=== PATIENT | female | born 1995 | race Caucasian/White ===

== ENCOUNTER 2021-12-26 19:31 | Emergency (ER) | payer OTHER ==
--- NOTE | 2021-12-26 21:21 | ER ---
Nurse's Notes [facility] [place] Name: Sanya Kearney Age: 26 yrs Sex: Female : 1995 Arrival Date: 12/26/2021 Time: 19:38 Bed 11 Private MD: Diagnosis: Streptococcal pharyngitis Presentation: 12/26 19:43 Chief complaint: Painful cough, congestion, SOB, headache, sore throat, body aches, and hb fever x 2 days. TMAX 101.6. Coronavirus screen: Client presents with at least one sign or symptom that may indicate coronavirus-19. Standard/surgical mask placed on the client. Provider contacted for isolation considerations. Ebola Screen: No symptoms or risks identified at this time. Initial Sepsis Screen: Does the patient meet any 2 criteria? No. Patient's initial sepsis screen is negative. Does the patient have a suspected source of infection? No. Patient's initial sepsis screen is negative. Risk Assessment: Do you want to hurt yourself or someone else? Patient reports no desire to harm self or others. Onset of symptoms was December 25, 2021. 19:43 Method Of Arrival: Ambulatory hb 19:43 Acuity: GILL 4 hb Historical: - Allergies: 19:46 No Known Allergies; hb - Home Meds: 19:46 None [Active]; hb - PMHx: 19:46 None; hb - PSHx: 19:46 None; hb - Immunization history:: Client reports having NOT received the Covid vaccine. - Social history:: Smoking status: Patient denies any tobacco usage or history of. - Family history:: not pertinent. - Hospitalizations: : No recent hospitalization is reported. Screenin:00 Abuse screen: Denies threats or abuse. Denies injuries from another. Nutritional hb screening: No deficits noted. Tuberculosis screening: No symptoms or risk factors identified. Fall Risk None identified. Assessment: 19:45 General: Appears in no apparent distress. Behavior is calm, cooperative. Pain: Pain hb currently is 6 out of 10 on a pain scale. Neuro: Level of Consciousness is awake, alert, obeys commands, Oriented to person, place, time, situation. Cardiovascular: Patient's skin is warm and dry. Respiratory: Respiratory effort is even, unlabored, Respiratory pattern is regular, symmetrical. GI: No signs and/or symptoms were reported involving the gastrointestinal system. : No signs and/or symptoms were reported regarding the genitourinary system. EENT: No signs and/or symptoms were reported regarding the EENT system. Derm: Skin is pink, warm \\T\\ dry. Musculoskeletal: No signs and/or symptoms reported regarding the musculoskeletal system. 21:00 Reassessment: Patient appears in no apparent distress at this time. Patient and/or hb family updated on plan of care and expected duration. Pain level reassessed. Patient is alert, oriented x 3, equal unlabored respirations, skin warm/dry/pink. Vital Signs: 19:43 BP 142 / 72; Pulse 90; Resp 18; Temp 98.6; Pulse Ox 97% ; Weight 117.93 kg; Height 5 hb ft. 8 in. (172.72 cm); Pain 6/10; 19:43 Body Mass Index 39.53 (117.93 kg, 172.72 cm) hb ED Course: 19:38 Patient arrived in ED. ja2 19:46 Triage completed. hb 19:46 Arm band placed on. hb 19:58 Shen Shannon MD is Attending Physician. rn 20:27 Strep Sent. 5 20:27 Flu Sent. [facility] 20:27 SARS-COV-2 RT PCR (Document "Date of Onset" if Symptomatic) Sent. [facility] 20:27 COVID swab sent to lab. Flu and/or RSV swab sent to lab. Strep swab sent to lab. [facility] 21:34 Patient has correct armband on for positive identification. hb 21:34 No provider procedures requiring assistance completed. Patient did not have IV access hb during this emergency room visit. Administered Medications: 21:33 Drug: Augmentin (Amoxicillin-Clavulanate) 875 mg Route: PO; 21:33 Follow up: Response: Medication administered at discharge. Medication: 21:34 VIS not applicable for this client. Outcome: 21:21 Discharge ordered by . rn 21:34 Discharged to home ambulatory. 21:34 Condition: stable 21:34 Discharge instructions given to patient, Instructed on discharge instructions, follow up and referral plans. medication usage, Demonstrated understanding of instructions, follow-up care, medications, Prescriptions given X 1. 21:34 Patient left the ED. Signatures: Shen Shannon MD MD rn Baxter, Heather, RN RN hb Martinez, Maria [facility] Sariah Silva2 Corrections: (The following items were deleted from the chart) 19:47 19:43 Pulse 90bpm; Resp 18bpm; Pulse Ox 97%; Temp 98.6F; 117.93 kg; Height 5 ft. 8 in.; hb BMI: 39.5; Pain 6/10; hb 21:09 19:43 Acuity: GILL 3 hb hb
--- NOTE | 2021-12-26 21:21 | EDPHYS ---
Physician Documentation [facility] [place] Name: Sanya Kearney Age: 26 yrs Sex: Female : 1995 Arrival Date: 12/26/2021 Time: 19:38 Bed 11 Private MD: ED Physician Shen Shannon HPI: 12/26 20:28 This 26 yrs old Female presents to ER via Ambulatory with complaints of Cough, rn Congestion, Ear Pain, Chest Pain, Runny Nose. 20:28 The patient or guardian reports cough, flu symptoms, low-grade fever, myalgias, hoarse rn voice. 20:28 Onset: The symptoms/episode began/occurred 2 day(s) ago. Severity of symptoms: At their rn worst the symptoms were mild, in the emergency department the symptoms are unchanged. Modifying factors: The symptoms are alleviated by nothing, the symptoms are aggravated by nothing. Associated signs and symptoms: Pertinent positives: earache, fever, rhinorrhea, sore throat, Pertinent negatives: chest pain. The patient has not experienced similar symptoms in the past. The patient has not recently seen a physician. Daughter now sick with similar symptoms as well. No sob. . Historical: - Allergies: 19:46 No Known Allergies; hb - Home Meds: 19:46 None [Active]; hb - PMHx: 19:46 None; hb - PSHx: 19:46 None; hb - Immunization history:: Client reports having NOT received the Covid vaccine. - Social history:: Smoking status: Patient denies any tobacco usage or history of. - Family history:: not pertinent. - Hospitalizations: : No recent hospitalization is reported. 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 Exam: 20:28 Constitutional: This is a well developed, well nourished patient who is awake, alert, rn and in no acute distress. Head/Face: Normocephalic, atraumatic. Eyes: Periorbital areas with no swelling, redness, or edema. Cardiovascular: Regular rate and rhythm. No pulse deficits. Respiratory: No increased work of breathing, no retractions or nasal flaring. Skin: Warm, dry with normal turgor. Normal color with no rashes, no lesions, and no evidence of cellulitis. MS/ Extremity: Pulses equal, no cyanosis. Neuro: Awake and alert, GCS 15 Vital Signs: 19:43 BP 142 / 72; Pulse 90; Resp 18; Temp 98.6; Pulse Ox 97% ; Weight 117.93 kg; Height 5 hb ft. 8 in. (172.72 cm); Pain 6/10; 19:43 Body Mass Index 39.53 (117.93 kg, 172.72 cm) hb MDM: 19:58 Patient medically screened. rn 21:19 Differential Diagnosis: Bronchitis Influenza Upper Respiratory Infection Viral rn Syndrome. Data reviewed: vital signs, nurses notes, lab test result(s), and as a result, I will discharge patient. Counseling: I had a detailed discussion with the patient and/or guardian regarding: the historical points, exam findings, and any diagnostic results supporting the discharge/admit diagnosis, lab results, the need for outpatient follow up, to return to the emergency department if symptoms worsen or persist or if there are any questions or concerns that arise at home. Special discussion: I discussed with the patient/guardian in detail that at this point there is no indication for admission to the hospital. It is understood, however, that if the symptoms persist or worsen the patient needs to return immediately for re-evaluation. 12/26 20:11 Order name: SARS-COV-2 RT PCR (Document "Date of Onset" if Symptomatic); Complete Time: rn 21:18 12/26 20:11 Order name: Flu; Complete Time: 21:18 rn 12/26 20:11 Order name: Strep; Complete Time: 21:18 rn Administered Medications: 21:33 Drug: Augmentin (Amoxicillin-Clavulanate) 875 mg Route: PO; hb 21:33 Follow up: Response: Medication administered at discharge. hb Disposition Summary: 12/26/21 21:21 Discharge Ordered Location: Home rn Problem: new rn Symptoms: have improved rn Condition: Stable rn Diagnosis - Streptococcal pharyngitis rn Followup: rn - With: Private Physician - When: As needed - Reason: Recheck today's complaints, Re-evaluation by your physician Discharge Instructions: - Discharge Summary Sheet rn - Pharyngitis rn - Strep Throat, Adult rn Forms: - Medication Reconciliation Form rn - Thank You Letter rn - Antibiotic rn resource nurse - Prescription Opioid Use rn Prescriptions: - Augmentin 875-125 mg Oral Tablet - take 1 tablet by ORAL route every 12 hours for 10 days; 20 tablet; Refills: 0, rn Product Selection Permitted Signatures: Dispatcher [employer] Shen Sanon MD MD rn Paige Venegas RN RN
[2021-12-26] MEDS ORDERED: AMOX/K CLAV 875 MG TAB ONE (21:42)
[2021-12-27 01:00] VITALS: BP 142/72; TEMP 98.6; O2SAT 97
== END 2021-12-26 21:34 | disposition home or self-care (01) ==
LOC: ER 19:31 → EDBD 19:31 → ER 21:34
DX: J02.0 Streptococcal pharyngitis (principal); Z20.822 Contact with and (suspected) exposure to COVID-19
CPT/HCPCS: 87081; 87804 ×2; 99283; U0003

== ENCOUNTER 2023-03-15 17:41 | Emergency (ER) | payer OTHER ==
--- OUTSIDE RECORDS SUMMARY | 2023-03-15 17:45 | XMS REPORT | Continuity of Care Document ---
:1995 Author Organization [facility] t Address [address] [place] [address] Care Team Providers Name Role Phone Arlene Perez Primary Care Physician Arlene Perez Attending Clinician [phone] Doctor Unassigned, Seba Dalkai Attending Clinician Unavailable Griselda Feliciano Attending Clinician Unavailable GRISELDA DUARTE Attending Clinician Unavailable ARLENE STARKS Attending Clinician Unavailable Woo Ellis MD Attending Clinician WOO ELLIS Attending Clinician Unavailable Roberto Saucedo DO Attending Clinician Jose Manuel Esteban DO Attending Clinician Soraya Miranda RN Attending Clinician Unavailable Ultrasound, [facility] Attending Clinician Unavailable Geronimo Cho MD Attending Clinician GERONIMO CHO Attending Clinician Unavailable Terese Quiroz Attending Clinician Unavailable LISA ESPINOZA Attending Clinician Unavailable Lab, [facility] Attending Clinician Unavailable Brandon Gayle MD Attending Clinician BRANDON GAYLE Attending Clinician Unavailable Lisa Newsome Attending Clinician Lab, [facility] Attending Clinician Unavailable Amna Read MD, Rodgers Attending Clinician [phone] JUANCARLOS MERIDA Attending Clinician Unavailable 1, [facility] Room Attending Clinician Unavailable Woo Ellis MD Admitting Clinician WOO ELLIS Admitting Clinician Unavailable Payers Payer Name Policy Type Policy Number Effective Date Expiration Date S ource Problems Condition Condition Condition Status Onset Resolution Last Treating Co mments Source Name Details Category Date Date Treatment Clinician Date BMI BMI Disease Active Univers 40.0-44.9, 40.0-44.9, 8-03 it y of adult adult 00:00: [place] [address] Medical Branch Screen for Screen for Disease Active U [employer] STD STD 7-13 ity of ([place] dical d disease) d disease) Br anch Dysuria Dysuria Disease Active Univers 6-21 ity of 00:00: [place] [address] Medical [place] Class 3 Class 3 Disease Active 2020-04 Univers severe severe 1-12 ity of obesity obesity 00:00: [place] due to due to 00 Medical excess excess Branch calories calories with body with body mass index mass index (BMI) of (BMI) of 40.0 to 40.0 to 44.9 in 44.9 in adult, adult, unspecifie unspecifie d whether d whether serious serious comorbidit comorbidit y present y present Well woman Well woman Disease Active U nivers exam exam 8-29 ity of 00:00: [place] [address] Medical Branch Obesity Obesity Disease Active Univers (BMI (BMI 7-12 ity of 30-39.9) 30-39.9) 00:00: [place] [address] Medical Branch History of History of Disease Active 2016-04 U nivers depression depression 1-27 it y of 00:00: [address] Allergies, Adverse Reactions, Alerts Allergy Allergy Status Severity Reaction(s) Onset Inactive Treating Comm ents Source Name Type Date Date Clinician NO KNOWN Drug Active Univers ALLERGIE Class ity of [facility] Social History Social Habit Start Date Stop Date Quantity Comments Source Sexual orientation [facility] Exposure to 2021-11-23 2021-12-03 Not sure [facility] SARS-CoV-2 (event) 00:00:00 14:18:00 [facility] Alcohol intake 2021-02-27 2021-02-27 Current University of 00:00:00 00:00:00 non-drinker of [facility] alcohol [place] (finding) History of Social 2018-10-26 2018-10-26 Univers ity of function 00:00:00 00:00:00 [facility] Tobacco use and 2017-03-14 2017-03-14 Smokeless Universit y of exposure 00:00:00 00:00:00 tobacco non-user [facility] Sex Assigned At [birth year] Universit y of 00:00:00 00:00:00 [facility] Smoking Status Start Date Stop Date Source Never smoked tobacco [facility] Medications Ordered Filled Start Stop Current Ordering Indication Dosage Frequency Signature Comments Components Source Medication Medication Date Date Medication? Clinician (SIG) Name Name jack Yes [id number] 1{tbl} Take 1 Univers ne 0.35 mg 8-18 tablet by ity of tablet 00:00: mouth in [place] the Medical morning. Branch jack Yes [id number] 1{tbl} Take 1 Univers ne 0.35 mg 8-18 tablet by ity of tablet 00:00: mouth in [place] the Medical morning. Branch jack Yes [id number] 1{tbl} Take 1 Univers ne 0.35 mg 8-18 tablet by ity of tablet 00:00: mouth in [place] the Medical morning. Branch jack Yes [id number] 1{tbl} Take 1 Univers ne 0.35 mg 8-18 tablet by ity of tablet 00:00: mouth in [place] [address] the Medical morning. Branch jack Yes [id number] 1{tbl} Take 1 Univers ne 0.35 mg 8-18 tablet by ity of tablet 00:00: mouth in [place] 00 the Medical morning. Branch 2021- No [facility] 6[facility]18 06-18 mouth. ity of calc,iron,f 08:26: 00:00 [place] olic 33 :00 Medical ( Branch VITAMIN ORAL) 2021- No Take by Unive rs vit 6-18 18 mouth. ity of calc,iron,f 08:26: 00:00 [place] ol 33 :00 Medical ( Branch VITAMIN ORAL) 2021- No Take by [facility] vit 6-18 18 mouth. ity of calc,iron,f 08:26: 00:00 [place] ol 33 :00 Medical ( Branch VITAMIN ORAL) Yes [id number] 1{tbl} Take 1 U nivers vitamin 6-18 tablet by ity of w/FA tablet 00:00: mouth [place] 00 daily. Medical Branch docusate Yes [id number] 200mg Take 2 Un celestina 100 mg 6-18 capsules ity of capsule 00:00: by mouth [place] 00 once daily Medical as needed Branch for Constipati on. ferrous Yes [id number] 325mg Take 1 Uni vers sulfate 325 6-18 tablet by ity of mg (65 mg 00:00: mouth 2 [place] iron) 00 (two) Medical tablet times Branch daily. ibuprofen Yes [id number] 600mg Take 1 U nivers 600 mg 6-18 tablet by ity of tablet 00:00: mouth [place] 00 every 6 Medical (six) Branch hours as needed (Pain). Take with food or milk. Yes [id number] 1{tbl} Take 1 U nivers vitamin 6-18 tablet by ity of w/FA tablet 00:00: mouth [place] 00 daily. Medical Branch docusate Yes [id number] 200mg Take 2 Un celestina 100 mg 6-18 capsules ity of capsule 00:00: by mouth [place] 00 once daily Medical as needed Branch for Constipati on. ferrous Yes [id number] 325mg Take 1 Uni vers sulfate 325 6-18 tablet by ity of mg (65 mg 00:00: mouth 2 [place] iron) 00 (two) Medical tablet times Branch daily. ibuprofen 2021-0 Yes [id number] 600mg Take 1 U nivers 600 mg 6-18 tablet by ity of tablet 00:00: mouth [place] 00 every 6 Medical (six) Branch hours as needed (Pain). Take with food or milk. 2021-0 Yes [id number] 1{tbl} Take 1 U nivers vitamin 6-18 tablet by ity of w/FA tablet 00:00: mouth [place] 00 daily. Medical Branch docusate 0 Yes [id number] 200mg Take 2 Un celestina 100 mg 6-18 capsules ity of capsule 00:00: by mouth [place] 00 once daily Medical as needed Branch for Constipati on. ferrous 2021-0 Yes [id number] 325mg Take 1 Uni vers sulfate 325 6-18 tablet by ity of mg (65 mg 00:00: mouth 2 [place] iron) 00 (two) Medical tablet times Branch daily. ibuprofen 2021-0 Yes [id number] 600mg Take 1 U nivers 600 mg 6-18 tablet by ity of tablet 00:00: mouth [place] 00 every 6 Medical (six) Branch hours as needed (Pain). Take with food or milk. 2021-0 Yes [id number] 1{tbl} Take 1 U nivers vitamin 6-18 tablet by ity of w/FA tablet 00:00: mouth [place] 00 daily. Medical Branch docusate 2021-0 Yes [id number] 200mg Take 2 Un celestina 100 mg 6-18 capsules ity of capsule 00:00: by mouth [place] 00 once daily Medical as needed Branch for Constipati on. ferrous 2021-0 Yes [id number] 325mg Take 1 Uni vers sulfate 325 6-18 tablet by ity of mg (65 mg 00:00: mouth 2 [place] iron) 00 (two) Medical tablet times Branch daily. ibuprofen 2021-0 Yes [id number] 600mg Take 1 U nivers 600 mg 6-18 tablet by ity of tablet 00:00: mouth [place] 00 every 6 Medical (six) Branch hours as needed (Pain). Take with food or milk. 2021-0 Yes [id number] 1{tbl} Take 1 U nivers vitamin 6-18 tablet by ity of w/FA tablet 00:00: mouth [place] 00 daily. Medical Branch docusate 0 Yes [id number] 200mg Take 2 Un celestina 100 mg 6-18 capsules ity of capsule 00:00: by mouth [place] 00 once daily Medical as needed Branch for Constipati on. ferrous 2021-0 Yes [id number] 325mg Take 1 Uni vers sulfate 325 6-18 tablet by ity of mg (65 mg 00:00: mouth 2 [place] iron) 00 (two) Medical tablet times Branch daily. ibuprofen 2021-0 Yes [id number] 600mg Take 1 U nivers 600 mg 6-18 tablet by ity of tablet 00:00: mouth [place] 00 every 6 Medical (six) Branch hours as needed (Pain). Take with food or milk. 0 Yes [id number] 1{tbl} Take 1 U nivers vitamin 6-18 tablet by ity of w/FA tablet 00:00: mouth [place] 00 daily. Medical Branch docusate Yes [id number] 200mg Take 2 Un celestina 100 mg 6-18 capsules ity of capsule 00:00: by mouth [place] 00 once daily Medical as needed Branch for Constipati on. ferrous 0 Yes [id number] 325mg Take 1 Uni vers sulfate 325 6-18 tablet by ity of mg (65 mg 00:00: mouth 2 [place] iron) 00 (two) Medical tablet times Branch daily. ibuprofen 2021-0 Yes [id number] 600mg Take 1 U nivers 600 mg 6-18 tablet by ity of tablet 00:00: mouth [place] 00 every 6 Medical (six) Branch hours as needed (Pain). Take with food or milk. 2021-0 Yes [id number] 1{tbl} Take 1 U nivers vitamin 6-18 tablet by ity of w/FA tablet 00:00: mouth [place] 00 daily. Medical Branch docusate 0 Yes [id number] 200mg Take 2 Un celestina 100 mg 6-18 capsules ity of capsule 00:00: by mouth [place] 00 once daily Medical as needed Branch for Constipati on. ferrous 2021-0 Yes [id number] 325mg Take 1 Uni vers sulfate 325 6-18 tablet by ity of mg (65 mg 00:00: mouth 2 [place] iron) 00 (two) Medical tablet times Branch daily. ibuprofen 2021-0 Yes [id number] 600mg Take 1 U nivers 600 mg 6-18 tablet by ity of tablet 00:00: mouth [place] 00 every 6 Medical (six) Branch hours as needed (Pain). Take with food or milk. proMETHazin 2020-04- No [id number] 25mg Take 1 Univers e 25 mg 05-0918 tablet by ity of tablet 00:00: 00:00 mouth [place] 00 :00 every 4 Medical (four) Branch hours as needed for Nausea and Vomiting (N/V). PNV 67-iron 2020-04- No [id number] 1{capsu Take 1 Univers ps-folate 04-2918 le} capsule by ity of no.1-dha 00:00: 00:00 mouth [place] (VITAFOL 00 :00 daily. Medical ULTRA) 29 Branch mg iron- 1 mg-200 mg Cap PNV 67-iron 2020-04- No [id number] 1{capsu Take 1 Univers ps-folate 04-29 le} capsule by ity of no.1-dha 00:00: 00:00 mouth [place] (VITAFOL 00 :00 daily. Medical ULTRA) 29 Branch mg iron- 1 mg-200 mg Cap PNV 67-iron 2020-04- No [id number] 1{capsu Take 1 Univers ps-folate 04-29 le} capsule by ity of no.1-dha 00:00: 00:00 mouth [place] (VITAFOL 00 :00 daily. Medical ULTRA) 29 Branch mg iron- 1 mg-200 mg Cap Immunizations Ordered Filled Date Status Comments Source Immunization Name Immunization Name Rho (d) Immune 2021-10-02 Completed University of Globulin 00:00:00 [facility] Rho (d) Immune 2021-10-02 Completed University of Globulin 00:00:00 [facility] Rho (d) Immune 2021-10-02 Completed University of Globulin 00:00:00 [facility] TDAP 2021-07-22 Completed University of 00:00:00 [facility] Rho (d) Immune 2021-07-22 Completed University of Globulin 00:00:00 [facility] TDAP 2021-07-22 Completed University of 00:00:00 [facility] Rho (d) Immune 2021-07-22 Completed University of Globulin 00:00:00 [facility] TDAP 2021-07-22 Completed University of 00:00:00 [facility] Rho (d) Immune 2021-07-22 Completed University of Globulin 00:00:00 [facility] HPV9 2017-12-05 Completed University of 00:00:00 [facility] HPV9 2017-12-05 Completed University of 00:00:00 [facility] HPV9 2017-12-05 Completed University of 00:00:00 [facility] HPV9 2017-10-29 Completed University of 00:00:00 [facility] HPV9 2017-10-29 Completed University of 00:00:00 [facility] HPV9 2017-10-29 Completed University of 00:00:00 [facility] Rho (d) Immune 2017-10-28 Completed University of Globulin 00:00:00 [facility] Rho (d) Immune 2017-10-28 Completed University of Globulin 00:00:00 [facility] Rho (d) Immune 2017-10-28 Completed University of Globulin 00:00:00 [facility] TDAP 2017-08-16 Completed University of 00:00:00 [facility] Rho (d) Immune 2017-08-16 Completed University of Globulin 00:00:00 [facility] TDAP 2017-08-16 Completed University of 00:00:00 [facility] Rho (d) Immune 2017-08-16 Completed University of Globulin 00:00:00 [facility] TDAP 2017-08-16 Completed University of 00:00:00 [facility] Rho (d) Immune 2017-08-16 Completed University of Globulin 00:00:00 [facility] Influenza Virus 2017-02-16 Completed Universit y of Vaccine - Whole 00:00:00 [facility] Influenza Virus 2017-02-16 Completed Universit y of Vaccine - Whole 00:00:00 [facility] Influenza Virus 2017-02-16 Completed Universit y of Vaccine - Whole 00:00:00 [facility] Influenza Virus Unknown Completed Universit y of Vaccine - Whole [facility] TDAP Unknown Completed University [facility] Rho (d) Immune Unknown Completed University of Globulin [facility] Rho (d) Immune Unknown Completed University of Globulin [facility] HPV9 Unknown Completed University [facility] HPV9 Unknown Completed University [facility] TDAP Unknown Completed University of [facility] Rho (d) Immune Unknown Completed University of Globulin [facility] Rho (d) Immune Unknown Completed [facility] Influenza Virus Unknown Completed Universit y of Vaccine - Whole [facility] TDAP Unknown Completed [facility] Rho (d) Immune Unknown Completed [facility] Rho (d) Immune Unknown Completed [facility] HPV9 Unknown Completed [facility] HPV9 Unknown Completed [facility] TDAP Unknown Completed [facility] Rho (d) Immune Unknown Completed [facility] Rho (d) Immune Unknown Completed [facility] Influenza Virus Unknown Completed Universit y of Vaccine - Whole [facility] TDAP Unknown Completed [facility] Rho (d) Immune Unknown Completed [facility] Rho (d) Immune Unknown Completed [facility] HPV9 Unknown Completed [facility] HPV9 Unknown Completed [facility] TDAP Unknown Completed [facility] Rho (d) Immune Unknown Completed [facility] Rho (d) Immune Unknown Completed [facility] Influenza Virus Unknown Completed Universit y of Vaccine - Whole [facility] TDAP Unknown Completed [facility] Rho (d) Immune Unknown Completed [facility] Rho (d) Immune Unknown Completed [facility] HPV9 Unknown Completed [facility] HPV9 Unknown Completed [facility] TDAP Unknown Completed [facility] Rho (d) Immune Unknown Completed [facility] Rho (d) Immune Unknown Completed [facility] Influenza Virus Unknown Completed Universit y of Vaccine Whole [facility] TDAP Unknown Completed [facility] Rho (d) Immune Unknown Completed [facility] Rho (d) Immune Unknown Completed [facility] HPV9 Unknown Completed [facility] HPV9 Unknown Completed [facility] TDAP Unknown Completed [facility] Rho (d) Immune Unknown Completed [facility] Influenza Virus Unknown Completed Universit y of Vaccine - Whole [facility] TDAP Unknown Completed [facility] Rho (d) Immune Unknown Completed [facility] Rho (d) Immune Unknown Completed [facility] HPV9 Unknown Completed [facility] HPV9 Unknown Completed [facility] TDAP Unknown Completed [facility] Rho (d) Immune Unknown Completed [facility] Influenza Virus Unknown Completed Universit y of Vaccine - Whole [facility] TDAP Unknown Completed [facility] Rho (d) Immune Unknown Completed [facility] Rho (d) Immune Unknown Completed [facility] HPV9 Unknown Completed [facility] HPV9 Unknown Completed [facility] TDAP Unknown Completed [facility] Rho (d) Immune Unknown Completed [facility] Influenza Virus Unknown Completed Universit y of Vaccine - Whole [facility] TDAP Unknown Completed [facility] Rho (d) Immune Unknown Completed [facility] Rho (d) Immune Unknown Completed [facility] HPV9 Unknown Completed [facility] HPV9 Unknown Completed [facility] TDAP Unknown Completed [facility] Rho (d) Immune Unknown Completed [facility] Influenza Virus Unknown Completed Universit y of Vaccine - Whole [facility] TDAP Unknown Completed [facility] Rho (d) Immune Unknown Completed [facility] Rho (d) Immune Unknown Completed [facility] HPV9 Unknown Completed [facility] HPV9 Unknown Completed [facility] TDAP Unknown Completed [facility] Rho (d) Immune Unknown Completed [facility] Influenza Virus Unknown Completed Universit y of Vaccine - Whole [facility] TDAP Unknown Completed [facility] Rho (d) Immune Unknown Completed [facility] Rho (d) Immune Unknown Completed [facility] HPV9 Unknown Completed [facility] HPV9 Unknown Completed [facility] Influenza Virus Unknown Completed Universit y of Vaccine - Whole [facility] TDAP Unknown Completed [facility] Rho (d) Immune Unknown Completed [facility] Rho (d) Immune Unknown Completed [facility] HPV9 Unknown Completed [facility] HPV9 Unknown Completed [facility] Influenza Virus Unknown Completed Universit y of Vaccine - Whole [facility] TDAP Unknown Completed [facility] Rho (d) Immune Unknown Completed [facility] Rho (d) Immune Unknown Completed [facility] HPV9 Unknown Completed [facility] HPV9 Unknown Completed [facility] Influenza Virus Unknown Completed Universit y of Vaccine - Whole [facility] TDAP Unknown Completed [facility] Rho (d) Immune Unknown Completed [facility] Rho (d) Immune Unknown Completed [facility] HPV9 Unknown Completed [facility] HPV9 Unknown Completed [facility] Influenza Virus Unknown Completed Universit y of Vaccine - Whole [facility] TDAP Unknown Completed [facility] Rho (d) Immune Unknown Completed [facility] Rho (d) Immune Unknown Completed [facility] HPV9 Unknown Completed [facility] HPV9 Unknown Completed [facility] Influenza Virus Unknown Completed Universit y of Vaccine - Whole [facility] TDAP Unknown Completed [facility] Rho (d) Immune Unknown Completed [facility] Rho (d) Immune Unknown Completed [facility] HPV9 Unknown Completed [facility] HPV9 Unknown Completed [facility] Vital Signs Vital Name Observation Time Observation Value Comments Source Systolic blood 2021-12-03 19:19:00 129 mm[Hg] Univer [facility] Diastolic blood 2021-12-03 19:19:00 68 mm[Hg] [facility] Heart rate 2021-12-03 19:19:00 76 /min [facility] Body temperature 2021-12-03 19:19:00 36.89 Tiffanie [facility] Respiratory rate 2021-12-03 19:19:00 18 /min [facility] Body weight 2021-12-03 19:19:00 120.884 kg [facility] BMI 2021-12-03 19:19:00 40.52 kg/m2 [facility] Procedures Procedure Date / Time Performed Performing Clinician Sourmati e POCT TEST 2021-12-03 19:22:00 Griselda Duarte [facility] Encounters Start End Encounter Admission Attending Care Care Encounter Source Date/Time Date/Time Type Type Clinicians Facility Department ID 2022-06-29 2022-06-29 Telephone [facility] [id number] [facility] 00:00:00 00:00:00 Arlene Seo PRIOR AUTHORIZATION NURSE [id number] ity [facility] [id number] Ravi as MATERNAL [id number] [facility] ical & CHILD [address] [place] [address] 2022-03-08 2022-03-08 Outpatient R [facility] [id number] Univers 14:00:00 14:00:00 ity of [facility] 2022-01-11 2022-01-11 Refill Eusebio [facility] [id number] Univers 00:00:00 00:00:00 Arlene Seo PRIOR AUTHORIZATION NURSE [id number] ity of [facility] [id number] Ravi as MATERNAL [id number] [facility] ical & CHILD [address] [place] [address] 2022-01-11 2022-01-11 Patient Doctor PAIGE [id number] Univers 00:00:00 00:00:00 Secure Msg Unassigned, KEEGAN [id number] ity [facility] [id number] Ravi as [phone] [address] 2021-12-25 2021-12-25 [facility] [id number] Univers 00:00:00 00:00:00 Secure Msg Griselda Richey PRIOR AUTHORIZATION NURSE [id number] ity of [facility] [id number] Ravi as MATERNAL [id number] [facility] & CHILD [address] [place] [address] 2021-12-03 2021-12-03 Outpatient R FELICIA [facility] [id number] Univers 14:30:00 14:32:18 ROSHUNDA ity o f [facility] 2021-12-03 2021-12-03 [facility] [id number] Univers 14:30:00 14:32:18 Visit Griselda Richey PRIOR AUTHORIZATION NURSE [id number] ity of [facility] [id number] Ravi as MATERNAL [id number] [facility] [facility] & CHILD [address] [place] [address] 2021-12-03 2021-12-03 Outpatient R FELICIA [facility] [id number] Univers 14:30:00 14:30:00 GRISELDA dejesusy o rae [facility] 2021-11-18 2021-11-18 [facility] [id number] Univers 09:45:00 10:31:04 GRISELDA dejesusy o rae [facility] 2021-11-18 2021-11-18 [facility] 1.2.840.114 [id number] Univers 09:45:00 10:31:04 Visit Josiewilber R PRIOR AUTHORIZATION NURSE 350.1.13.10 ity of REGIONAL 4.2.7.2.686 Ravi as MATERNAL [phone] Med ical & CHILD [address] [place] [address] 2021-11-18 2021-11-18 [facility] [id number] Univers 09:45:00 09:45:00 GRISELDA clemons o rae [facility] 2021-11-10 2021-11-10 Patient Doctor [facility] 1.2.840.114 [id number] Univers 00:00:00 00:00:00 Secure Msg Unassigned, PRIOR AUTHORIZATION NURSE 350.1.13.10 ity of [place] REGIONAL 4.2.7.2.686 Ravi as MATERNAL [phone] [facility] & CHILD [address] [place] [address] 2021-10-28 2021-10-28 Outpatient [facility] [id number] Univers 09:45:00 10:29:10 ARLENE ity o [facility] 2021-10-28 2021-10-28 Routine [facility] 1.2.649.511 [id number] Univers 09:45:00 10:29:10 Arlene C PRIOR AUTHORIZATION NURSE 350.1.13.10 ity of Visit REGIONAL 4.2.7.2.686 Ravi as MATERNAL [phone] [facility] & CHILD [address] [place] [address] 2021-10-07 2021-10-07 [facility] 1.2.277.442 [id number] Univers 00:00:00 00:00:00 Rosasianda R PRIOR AUTHORIZATION NURSE 350.1.13.10 ity of REGIONAL 4.2.7.2.686 Ravi as MATERNAL [id number] [facility] [address] [place] [address] 2021-10-07 2021-10-07 Patient Doctor [facility] 1.2.840.114 [id number] Univers 00:00:00 00:00:00 Secure Msg Unassigned, PRIOR AUTHORIZATION NURSE 350.1.13.10 ity of [place] [facility] 4.2.7.2.686 Ravi as MATERNAL [phone] [facility] & CHILD [address] [place] [address] 2021-10-06 2021-10-06 Routine [facility] 1.2.840.114 [id number] Univers 15:30:00 15:30:00 Griselda R PRIOR AUTHORIZATION NURSE 350.1.13.10 ity of Visit [facility] 4.2.7.2.686 Ravi as MATERNAL [id number] [facility] CHILD [address] [place] [address] 2021-10-06 2021-10-06 Outpatient [facility] [id number] Univers 15:30:00 13:34:00 ROSASIANDA ity o f [facility] 2021-10-06 2021-10-06 Telephone [facility] 1.2.828.142 [id number] Univers 00:00:00 00:00:00 Rossonja R PRIOR AUTHORIZATION NURSE 350.1.13.10 ity of [place] [address].2.7.2.686 Ravi as MATERNAL [id number] [address] 2021-10-01 2021-10-03 Hospital PAIGE Ellis 1.2.298.367 [id number] Univers 20:26:00 13:00:00 Encounter Woo ALLISON 350.1.13.10 ity of [facility] 4.7.2.686 Ravi as [phone] [address] 2021-10-01 2021-10-03 Inpatient P DMITRY [facility] VICTOR M [id number] Univers 20:26:00 13:00:00 WOO clemons [facility] 2021-10-02 2021-10-02 Anesthesia PAIGE Saucedo 1.2.840.114 [id number] Univers 20:01:15 20:01:15 Event Roberto KEEGAN 350.1.13.10 it y of HOSPITAL 4.2.7.2.686 Ravi as [phone] [facility] [address] 2021-10-01 2021-10-02 Anesthesia Roberto Saucedo 1.2.840.11 4 [id number] Univers 23:15:00 06:53:00 Event Jose Manuel EstebanY 350.1.13.10 ity of HOSPITAL 4.2.7.2.686 Ravi as [id number] [facility] [address] 2021-09-28 2021-09-28 Outpatient R FELICIA [facility] [id number] Univers 15:15:00 15:15:00 GRISELDA clemons o [facility] 2021-09-21 2021-09-21 Outpatient Kaiden DUARTE [facility] [id number] Univers 16:45:00 17:19:44 ROSWILBER roy [facility] 2021-09-21 2021-09-21 [facility] 1.2.840.114 [id number] Univers 16:45:00 17:00:00 Rosobia R PRIOR AUTHORIZATION NURSE 350.1.13.10 ity of Visit REGIONAL 4.2.7.2.686 Ravi as MATERNAL [phone] [facility] ical & CHILD [address] [place] [address] 2021-09-21 2021-09-21 Outpatient Kaiden DUARTE [facility] [id number] Univers 16:45:00 16:45:00 GRISELDA roy [facility] 2021-09-15 2021-09-15 Outpatient Kaiden DUARTE [facility] [id number] Univers 15:45:00 15:45:00 GRISELDA clemons o [facility] 2021-09-15 2021-09-15 Orders Doctor PAIGE 1.2.840.114 [id number] Univers 00:00:00 00:00:00 Only Unassigned, KEEGAN 350.1.13.10 ity of [place] HOSPITAL 4.2.7.2.686 Ravi as [phone] [facility] [address] 2021-09-10 2021-09-10 Patient Felicia TXDEBBIE 1.2.840.114 [id number] Univers 00:00:00 00:00:00 Secure Msg Josiehunda R PRIOR AUTHORIZATION NURSE 350.1.13.10 ity of REGIONAL 4.2.7.2.686 Ravi as MATERNAL [phone] [facility] ical & CHILD [address] [place] [address] 2021-09-07 2021-09-07 Patient Felicia TXDEBBIE 1.2.840.114 [id number] Univers 00:00:00 00:00:00 Secure Msg Josiehunda R PRIOR AUTHORIZATION NURSE 350.1.13.10 ity of REGIONAL 4.2.7.2.686 Ravi as MATERNAL [id number] [facility] & CHILD [address] [place] [address] 2021-09-07 2021-09-07 Orders Doctor PAIGE 1.2.840.114 [id number] Univers 00:00:00 00:00:00 Only Unassigned, KEEGAN 350.1.13.10 ity of [place] [facility] 4.2.7.2.686 Ravi as [phone] [address] 2021-09-04 2021-09-04 Patient Ruben [facility] 1.2.840.114 [id number] Univers 00:00:00 00:00:00 Secure Soraya Gu PRIOR AUTHORIZATION NURSE 350.1.13.10 ity of REGIONAL 4.2.7.2.686 Ravi as MATERNAL [id number] [facility] & CHILD [address] [place] [address] 2021-08-31 2021-08-31 Outpatient R FELICIA [facility] [id number] Univers 17:45:00 18:13:35 ROSHUNDA ity o f [facility] 2021-08-31 2021-08-31 [facility] 1.2.840.114 [id number] Univers 17:45:00 18:13:35 Roshunda R PRIOR AUTHORIZATION NURSE 350.1.13.10 ity of Visit REGIONAL 4.2.7.2.686 Ravi as MATERNAL [id number] [facility] & CHILD [address] [place] [address] 2021-08-31 2021-08-31 Outpatient R FELICIA [facility] [id number] Univers 13:45:00 13:45:00 ROSHUNDA ity o f [facility] 2021-08-31 2021-08-31 Outpatient R FELICIA [facility] [id number] Univers 11:00:00 11:00:00 ROSHUNDA ity o f [facility] 2021-08-19 2021-08-19 Patient Felicia [facility] 1.2.840.114 [id number] Univers 00:00:00 00:00:00 Secure Msg Roshunda R PRIOR AUTHORIZATION NURSE 350.1.13.10 ity of REGIONAL 4.2.7.2.686 Ravi as MATERNAL [id number] Med ical & CHILD [address] [place] [address] 2021-08-17 2021-08-17 Outpatient R FELICIA [facility] [id number] Univers 17:30:00 17:54:45 ROSASIANDA itfransico o f [facility] 2021-08-17 2021-08-17 [facility] 1.2.840.114 [id number] Univers 17:30:00 17:54:45 Roshunda R PRIOR AUTHORIZATION NURSE 350.1.13.10 ity of Visit REGIONAL 4.2.7.2.686 Ravi as MATERNAL [phone] Med ical & CHILD [address] [place] [address] 2021-08-17 2021-08-17 Patient Felicia [facility] 1.2.840.114 [id number] Univers 00:00:00 00:00:00 Secure Msg Josiehunda R PRIOR AUTHORIZATION NURSE 350.1.13.10 ity of REGIONAL 4.2.7.2.686 Ravi as MATERNAL [phone] Med ical & CHILD [address] [place] [address] 2021-08-17 2021-08-17 Case [facility] 1.2.840.114 [id number] Univers 00:00:00 00:00:00 Management Roshunda R PRIOR AUTHORIZATION NURSE 350.1.13.10 ity of REGIONAL 4.2.7.2.686 Ravi as MATERNAL [id number] Med ical & CHILD [address] [place] [address] 2021-08-06 2021-08-06 Outpatient R FELICIA [facility] [id number] Univers 08:00:00 08:00:00 ROSASIANDA ity o f [facility] 2021-08-03 2021-08-03 Outpatient Kaiden DUARTE [facility] [id number] Univers 17:30:00 17:39:22 ROSASIANDA ity o f [facility] 2021-08-03 2021-08-03 [facility] 1.2.840.114 [id number] Univers 17:30:00 17:39:22 Roshunda R PRIOR AUTHORIZATION NURSE 350.1.13.10 ity of Visit REGIONAL 4.2.7.2.686 Ravi as MATERNAL [id number] Med ical & CHILD [address] [place] [address] 2021-07-23 2021-07-23 Patient Felicia [facility] 1.2.840.114 [id number] Univers 00:00:00 00:00:00 Secure Msg Roshunda R PRIOR AUTHORIZATION NURSE 350.1.13.10 ity of REGIONAL 4.2.7.2.686 Ravi as MATERNAL [phone] Med ical & CHILD [address] [place] [address] 2021-07-22 2021-07-22 Outpatient Kaiden DUARTE [facility] [id number] Univers 07:45:00 08:43:32 ROSHUNDA ity o [facility] 2021-07-22 2021-07-22 Routine [facility] 1.2.840.114 [id number] Univers 07:45:00 08:43:32 Roshunda R PRIOR AUTHORIZATION NURSE 350.1.13.10 ity of Visit REGIONAL 4.2.7.2.686 Ravi as MATERNAL [id number] Med ical & CHILD [address] [place] [address] 2021-07-22 2021-07-22 Outpatient Kaiden DUARTE [facility] [id number] Univers 07:45:00 07:45:00 ROSHUNDA ity o f [facility] 2021-07-08 2021-07-08 Outpatient Kaiden DUARTE [facility] [id number] Univers 07:45:00 08:21:42 ROSHUNDA ity o f [facility] 2021-07-082021-07-08 Routine [facility] 1.2.840.114 [id number] Univers 07:45:00 08:21:42 Roshunda R PRIOR AUTHORIZATION NURSE 350.1.13.10 ity of Visit REGIONAL 4.2.7.2.686 Ravi as MATERNAL [id number] [facility] ical & CHILD [address] [place] [address] 2021-06-23 2021-06-23 Outpatient [facility] [id number] Univers 07:45:00 08:08:16 ROSHUNDA ity o f [facility] 2021-06-23 2021-06-23 Routine [facility] 1.2.840.114 [id number] Univers 07:45:00 08:08:16 Roshunda R PRIOR AUTHORIZATION NURSE 350.1.13.10 ity of Visit REGIONAL 4.2.7.2.686 Ravi as MATERNAL [id number] [facility] & CHILD [address] [place] [address] 2021-05-26 2021-05-26 Outpatient [facility]iden [facility] [id number] Univers 08:45:00 09:21:15 ROSHUNDA ity o f [facility] 2021-05-26 2021-05-26 [facility] 1.2.840.114 [id number] Univers 08:45:00 09:21:15 Roshunda R PRIOR AUTHORIZATION NURSE 350.1.13.10 ity of Visit REGIONAL 4.2.7.2.686 Ravi as MATERNAL [id number] [facility] & CHILD [address] [place] [address] 2021-05-26 2021-05-26 Out[facility] [id number] Univers 08:45:00 08:45:00 ROSHUNDA ity o f [facility] 2021-05-22 2021-05-22 Abstract Eusebio [facility] 1.2.840.114 [id number] Univers 00:00:00 00:00:00 Arlene C PRIOR AUTHORIZATION NURSE 350.1.13.10 ity of REGIONAL 4.2.7.2.686 Ravi as MATERNAL [id number] [facility] & CHILD [address] [place] [address] 2021-05-21 2021-05-21 Psychiatric Technician Ultrasound, Junior-Leo [facility] 1.2 .840.114 [id number] Univers 10:00:00 11:18:16 Visit Marquis Geronimo Goddard PRIOR AUTHORIZATION NURSE 350.1.13.10 ity of [facility] 4.2.7.2.686 Ravi as MATERNAL [id number] Med ical & CHILD [address] [facility] 2021-05-21 2021-05-21 Outpatient P [facility] [id number] Univers 10:00:00 10:00:00 ity [facility] 2021-05-21 2021-05-21 Outpatient P MARQUIS [facility] [id number] Univers 10:00:00 10:00:00 GERONIMO [facility] 2021-04-29 2021-04-29 [facility] 1.2.036.417 [id number] Univers 00:00:00 00:00:00 Rossonja R PRIOR AUTHORIZATION NURSE 350.1.13.10 ity of [facility] 4.2.7.2.686 Ravi as MATERNAL [id number] [facility] & CHILD [address] [place] [address] 2021-04-28 2021-04-28 Outpatient R FELICIA [facility] [id number] Univers 08:45:00 09:45:10 ROSHUNDA ity o f [facility] 2021-04-28 2021-04-28 Routine Felicia [facility] 1.2.840.114 [id number] Univers 08:45:00 09:45:10 Roshunda R PRIOR AUTHORIZATION NURSE 350.1.13.10 ity of Visit [facility] 4.2.7.2.686 Ravi as MATERNAL [id number] [facility] & CHILD [address] [place] [address] 2021-04-27 2021-04-27 Telephone Richie [facility] 1.2.840.114 [id number] Univers 00:00:00 00:00:00 Terese SPECIALTY 350.1.13.10 [place] [phone] [address] 2021-04-24 2021-04-24 [facility] [id number] Univers 10:45:00 10:45:00 LISA clemons [facility] 2021-04-17 2021-04-17 Psychiatric Technician Lab, Ang-Rmchp [facility] 1.2.840. 114 [id number] Univers 13:30:00 13:30:00 Visit Brandon Gayle PRIOR AUTHORIZATION NURSE 350.1.13.10 ity of [facility] 4.2.7.2.686 Ravi as MATERNAL [phone] [facility] ical & CHILD [address] [place] [address] 2021-04-17 2021-04-17 Outpatient P BRANDON GAYLE [facility] [id number] Univers 09:00:00 09:36:13 ity [facility] 2021-04-17 2021-04-17 Telemedici Terese Quiroz [facility] 1.2.8 40.114 [id number] Univers 09:00:00 09:36:13 ne Visit Brandon Gayle PRIOR AUTHORIZATION NURSE 350.1.13.10 ity of [facility] 4.2.7.2.686 Ravi as MATERNAL [phone] [facility] [address] [place] [address] 2021-04-17 2021-04-17 Outpatient P [facility] [id number] Univers 09:00:00 09:00:00 ity [facility] 2021-04-17 2021-04-17 Orders Doctor PAIGE 1.2.840.114 [id number] Univers 00:00:00 00:00:00 Only Unassigned, KEEGAN 350.1.13.10 ity of [place] [facility] 4.2.7.2.686 Ravi as [id number] [address] 2021-04-14 2021-04-14 Telephone Alexis [facility] 1.2.840.114 [id number] Univers 00:00:00 00:00:00 Lisa Rangel PRIOR AUTHORIZATION NURSE 350.1.13.10 it y of [facility] 4.2.7.2.686 Ravi as MATERNAL [phone] [facility] [address] [place] [address] 2021-04-02 2021-04-02 Patient Alexis [facility] 1.2.115.936 [id number] Univers 00:00:00 00:00:00 Secure Msg Lisa N PRIOR AUTHORIZATION NURSE 350.1.13.10 ity of REGIONAL 4.2.7.2.686 Ravi as MATERNAL [id number] Med ical & CHILD [address] [place] [address] 2021-04-02 2021-04-02 [facility] 1.2.840.114 [id number] Univers 00:00:00 00:00:00 Lisa N PRIOR AUTHORIZATION NURSE 350.1.13.10 it y of REGIONAL 4.2.7.2.686 Ravi as MATERNAL [id number] Med ical & CHILD [address] [place] [address] 2021-04-01 2021-04-01 [facility] 1.2.840. 114 [id number] Univers 11:00:00 11:04:08 Visit Amna Jacek Juancarlos PRIOR AUTHORIZATION NURSE 350.1. 13.10 ity of REGIONAL 4.2.7.2.686 Ravi as MATERNAL [phone] Med ical & CHILD [address] [place] [address] 2021-04-01 2021-04-01 Outpatient R AMNA [facility] [id number] Univers 11:00:00 11:00:00 CALLI it y of [place] Ruth [facility] 2021-04-01 2021-04-01 Psychiatric Technician 1, [facility] 1.2. 840.114 [id number] Univers 10:15:00 11:00:00 Visit Amna StephensezequielJuancarlos PRIOR AUTHORIZATION NURSE 350.1. 13.10 ity of REGIONAL 4.2.7.2.686 Ravi as MATERNAL [id number] Med ical & CHILD [address] [facility] 2021-03-31 2021-03-31 Patient [facility] 1.2.453.073 [id number] Univers 00:00:00 00:00:00 Secure Msg Lisa N PRIOR AUTHORIZATION NURSE 350.1.13.10 ity of [facility] 4.2.7.2.686 Ravi as MATERNAL [phone] Med ical & CHILD [address] [place] [address] 2021-03-27 2021-03-27 [facility] [id number] Univers 10:30:00 10:58:54 LISA olegfransico [facility] 2021-03-27 2021-03-27 Routine [facility] 1.2.456.676 [id number] Univers 10:25:21 10:58:54 Lisa Rangel PRIOR AUTHORIZATION NURSE 350.1.13.10 i ty of Visit REGIONAL 4.2.7.2.686 Ravi as MATERNAL [id number] Med ical & CHILD [address] [place] [address] 2021-03-27 2021-03-27 Outpatient R ALEXIS [facility] [id number] Univers 10:30:00 10:30:00 LISA kaci [facility] 2021-03-09 2021-03-09 [facility] 1.2.612.432 [id number] Univers 00:00:00 00:00:00 Secure Msg Lisa Rangel PRIOR AUTHORIZATION NURSE 350.1.13.10 ity of [facility] 4.2.7.2.686 Ravi as MATERNAL [id number] Med ical & CHILD [address] [place] [address] 2021-03-09 2021-03-09 Telephone [facility] 1.2.840.114 [id number] Univers 00:00:00 00:00:00 Arlene Seo PRIOR AUTHORIZATION NURSE 350.1.13.10 ity of [facility] 4.2.7.2.686 Ravi as MATERNAL [id number] Med ical & CHILD [address] [place] [address] 2021-03-09 2021-03-09 Telephone Alexis [facility] 1.2.840.114 [id number] Univers 00:00:00 00:00:00 Lisa Rangel PRIOR AUTHORIZATION NURSE 350.1.13.10 it y of [facility] 4.2.7.2.686 Ravi as MATERNAL [id number] Med ical & CHILD [address] [place] [address] 2021-03-09 2021-03-09 Orders Doctor GIBSON 1.2.840.114 [id number] Univers 00:00:00 00:00:00 Only Unassigned, KEEGAN 350.1.13.10 ity of [place] [facility] 4.2.7.2.686 Ravi as [phone] [address] 2021-03-06 2021-03-06 Patient Doctor PAIGE 1.2.840.114 [id number] Univers 00:00:00 00:00:00 Secure Msg UnassignedKEEGAN 350.1.13.10 ity [facility] 4.2.7.2.686 Ravi as [id number] [address] 2021-03-05 2021-03-05 Patient Alexis [facility] 1.2.033.119 [id number] Univers 00:00:00 00:00:00 Secure Msg Lisa N PRIOR AUTHORIZATION NURSE 350.1.13.10 ity of [facility] 4.2.7.2.686 Ravi as MATERNAL [id number] [facility] ical & CHILD [address] [place] [address] 2021-03-03 2021-03-03 Outpatient R [facility] [id number] Univers 13:00:00 13:00:00 ity [facility] 2021-03-02 2021-03-02 [facility] [id number] Univers 10:30:00 10:15:03 ILSA clemons [facility] 2021-03-02 2021-03-02 Psychiatric Technician [facility] 1.2.840. 114 [id number] Univers 10:01:26 10:15:03 Visit Lisa Espinoza PRIOR AUTHORIZATION NURSE 350.1.13.10 ity of [facility] 4.2.7.2.686 Ravi as MATERNAL [phone] [facility] ical & CHILD [address] [place] [address] 2021-03-02 2021-03-02 Patient Alexis [facility] 1.2.853.691 [id number] Univers 00:00:00 00:00:00 Secure Msg Lisa N PRIOR AUTHORIZATION NURSE 350.1.13.10 ity of [facility] 4.2.7.2.686 Ravi as MATERNAL [id number] Med ical & CHILD [address] [place] [address] 2021-03-02 2021-03-02 Patient Alexis [facility] 1.2.732.234 [id number] Univers 00:00:00 00:00:00 Secure Msg Lisa N PRIOR AUTHORIZATION NURSE 350.1.13.10 ity of [facility] 4.2.7.2.686 Ravi as MATERNAL [id number] Med ical & CHILD [address] [place] [address] 2021-03-02 2021-03-02 [facility]phone [facility] 1.2.840.114 [id number] Univers 00:00:00 00:00:00 Lisa Rangel PRIOR AUTHORIZATION NURSE 350.1.13.10 it y of REGIONAL 4.2.7.2.686 Ravi as MATERNAL [id number] [facility] & CHILD [address] [place] [address] 2021-02-27 2021-02-27 [facility] [id number] Univers 13:45:00 14:56:40 LISA clemons [facility] 2021-02-27 2021-02-27 Initial [facility] 1.2.665.950 [id number] Univers 13:41:41 14:56:40 Lisa N PRIOR AUTHORIZATION NURSE 350.1.13.10 i ty of Visit [facility] 4.2.7.2.686 Ravi as MATERNAL [phone] [address] 2021-02-27 2021-02-27 Outpatient [facility] [id number] Univers 13:15:00 13:15:00 LISA clemons [facility] 2021-02-27 2021-02-27 Orders Doctor PAIGE 1.2.840.114 [id number] Univers 00:00:00 00:00:00 Only Unassigned, KEEGAN 350.1.13.10 ity of [place] [facility] 4.2.7.2.686 Ravi as [phone] [address] Results Test Description Test Time Test Comments Results Result Comments Source POCT TEST 2021-12-03 19:22:00 Test Item Value Reference Range Interpretation Comme nts POCT PREG (test code = 1605) Negative On board controls acceptable with C Line (test code = 3574) Yes POCT PREG LOT # (test code = 3575) POCT PREG TEST DATE (test code = 3576) [facility]
--- NOTE | 2023-03-15 19:13 | RAD REPORT ---
EXAM DESCRIPTION: Fabienne Single View03/15/2023 7:05 pm CLINICAL HISTORY: Chest pain COMPARISON: July 2022 FINDINGS: The lungs appear clear of acute infiltrate. The heart is normal size IMPRESSION: No acute abnormalities displayed
[2023-03-15] MEDS ORDERED: NA CHLORIDE 0.9% 1,000 ML ONE (19:43)
[2023-03-15] MEDS ORDERED: KETOROLAC 30 MG/ML INJ ONE (19:43)
[2023-03-15 20:03] LABS: Absolute Lymphocytes (CBC) 3.2 K/uL (0.7-4.9); Hematocrit 37.2 % (36.0-45.0); Lymphocytes % 26.3 % (15.3-44.8); MCV 79.2 fL (80-100); MPV 9.6 fL (7.6-11.3); Platelets 275 thou/uL (152-406)
[2023-03-15 20:04] LABS: Specific Gravity 1.018 (1.005-1.030)
[2023-03-15 20:06] LABS: Protime INR 0.99
[2023-03-15 20:13] LABS: Urine Bacteria None Seen /HPF (<20); Urine Crystals Unidentified Few /HPF (None Seen)
[2023-03-15 20:14] LABS: Barbiturates NEGATIVE (NEGATIVE); Benzodiazepines NEGATIVE (NEGATIVE); Cocaine NEGATIVE (NEGATIVE); METHAMPHETAM NEGATIVE (NEGATIVE); Methadone NEGATIVE (NEGATIVE); Opiates NEGATIVE (NEGATIVE); Phencyclidine NEGATIVE (NEGATIVE); THC Cannibis NEGATIVE (NEGATIVE)
[2023-03-15 20:20] LABS: ALT/SGPT 27 U/L (13-56); AST/SGOT 13 U/L (15-37); Albumin 3.7 g/dL (3.4-5.0); Alkaline Phosphatase 90 U/L (45-117); BUN Blood Urea Nitrogen 15 mg/dL (7-18); Bicarbonate 27 mEq/L (21-32); Bilirubin Total 0.2 mg/dL (0.2-1.0); Glomerular Filtration Rate 117 ml/min (=/>90); Glucose Level 100 mg/dL (74-106); Magnesium 2.2 mg/dL (1.6-2.4); Potassium 3.7 mEq/L (3.5-5.1); Sodium Level 137 mEq/L (136-145); Troponin High Sensitivity 3.4 pg/mL (<58.9)
[2023-03-15 20:25] LABS: Bilirubin Direct < 0.1 mg/dL (0-0.2); Bilirubin Indirect, Calculated ND mg/dL (0.2-0.8)
[2023-03-15] MEDS ORDERED: ALBUTEROL 2.5 MG/3 ML NEB SOL ONE (22:12)
--- NOTE | 2023-03-15 22:13 | EDPHYS ---
Physician Documentation [facility] Name: Sanya rachid Age: 27 yrs Sex: Female : 1995 Arrival Date: 03/15/2023 Time: 17:41 Bed 12 Private MD: ED Physician John Cherry HPI: 03/15 18:13 This 27 yrs old Female presents to ER via Unassigned with complaints of Chest Pain, Arm cp Problem - LEFT,TINGLING. 18:13 Patient is a 27-year-old female with no significant past medical history who presents cp to the emergency department with reported chest pain that started upon awakening this morning. Patient reports chest pain has continued to get worse throughout the day and over the last hour or so she has had in pain down her left arm and to her left shoulder with tingling. Patient reports she has a grandfather who she believes had a heart attack. 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 - Social history:: Smoking status: Patient denies any tobacco usage or history of. ROS: 18:15 Constitutional: Negative for body aches, chills, fever, poor PO intake, cp 18:15 Eyes: Negative for injury, pain, redness, and discharge, cp 18:15 ENT: Negative for drainage from ear(s), ear pain, sore throat, difficulty swallowing, difficulty handling secretions, 18:15 Neck: Negative for pain with movement, pain at rest, stiffness, 18:15 Cardiovascular: Positive for chest pain, Negative for edema, palpitations, 18:15 Respiratory: Negative for cough, shortness of breath, wheezing, 18:15 Abdomen/GI: Negative for abdominal pain, nausea, vomiting, and diarrhea, 18:15 MS/extremity: Positive for pain, paresthesias, of the left arm, 18:15 Neuro: Negative for altered mental status, dizziness, headache, syncope, weakness, 18:15 All other systems are negative, Exam: 18:20 Constitutional: The patient appears in no acute distress, alert, awake, cp non-diaphoretic, non-toxic, well developed, well nourished, obese, uncomfortable, 18:20 Head/Face: Normocephalic, atraumatic. cp 18:20 Eyes: Periorbital structures: appear normal, Conjunctiva: normal, no exudate, no injection, Sclera: no appreciated abnormality, Lids and lashes: appear normal, bilaterally, 18:20 ENT: External ear(s): are unremarkable, Nose: is normal, Mouth: Lips: moist, Oral mucosa: pink and intact, moist, Posterior pharynx: is normal, airway is patent, no erythema, no exudate, 18:20 Chest/axilla: Inspection: normal, Palpation: is normal, no crepitus, no tenderness, 18:20 Cardiovascular: Rate: normal, Rhythm: regular, Edema: JVD: 18:20 Respiratory: the patient does not display signs of respiratory distress, Respirations: normal, no use of accessory muscles, no retractions, labored breathing, is not present, Breath sounds: are clear throughout, no decreased breath sounds, no stridor, no wheezing, 18:20 Abdomen/GI: Inspection: abdomen appears normal, Palpation: abdomen is soft and non-tender, in all quadrants, 18:20 Back: pain, is absent, ROM is normal, 18:20 Musculoskeletal/extremity: Extremities: grossly normal except: ROM: intact in all extremities, Pulses: noted to be 2+ in the right radial artery and left radial artery, 18:20 Neuro: Orientation: to person, place \T\ time. Mentation: is normal, Motor: moves all fours, strength is normal, Sensation: no obvious gross deficits, 19:03 ECG was reviewed by the Attending Physician. cp Vital Signs: 18:45 BP 135 / 81; Pulse 85; Resp 19 S; Temp 98(TE); Pulse Ox 100% on R/A; Weight 117.93 kg aa5 (R); Height 5 ft. 8 in. (R); 19:30 BP 136 / 87; Pulse 88; Resp 17; Pulse Ox 99% ; jj7 20:30 BP 157 / 77; Pulse 90; Resp 18; Pulse Ox 98% on R/A; me1 21:30 BP 136 / 87; Pulse 100; Resp 20; Pulse Ox 99% on R/A; me1 21:30 BP 141 / 82; Pulse 89; Resp 17; Pulse Ox 98% on R/A; me1 18:45 Body Mass Index 39.53 (117.93 kg, 172.72 cm) aa5 MDM: 18:39 Patient medically screened. cp 19:00 Differential diagnosis: bronchitis, acute PR, anxiety, illegal drug use, pneumothorax, cp pulmonary embolism. 22:12 Data reviewed: vital signs, nurses notes, lab test result(s), EKG, radiologic studies, cp plain films. 22:12 I considered the following discharge prescriptions or medication management in the emergency department Medications were administered in the Emergency Department. See MAR. Independent interpretation of the following test(s) in the Emergency Department EKG: See my EKG interpretation above. Test considered but Not performed: EKG: ct chest for PE. CT: chest for . Counseling: I had a detailed discussion with the patient and/or guardian regarding the historical points, exam findings, and any diagnostic results supporting the discharge/admit diagnosis, lab results, radiology results, the need for outpatient follow up, a family practitioner, to return to the emergency department if symptoms worsen or persist or if there are any questions or concerns that arise at home. Response to treatment: the patient's symptoms have markedly improved after treatment, and as a result, I will discharge patient. Special discussion: Based on the patient's history, exam, and Dx evaluation, there is no indication for emergent intervention or inpatient Tx. It is understood by the patient/guardian that if the Sx's persist or worsen they need to return immediately for re-evaluation. 03/15 18:15 Order name: Basic Metabolic Panel; Complete Time: 21:23 03/15 18:15 Order name: CBC with Diff; Complete Time: 21:23 03/15 21:23 Interpretation: Normal except: WBC 12.20; MCV 79.2; MCH 25.9. 03/15 18:15 Order name: D-Dimer; Complete Time: 21:23 03/15 18:15 Order name: LFT's; Complete Time: 21:23 03/15 21:24 Interpretation: Normal except: AST 13; GLOB 4.3; A/G 0.9. 03/15 18:15 Order name: Magnesium; Complete Time: 21:23 03/15 18:15 Order name: PT-INR; Complete Time: 21:23 03/15 18:15 Order name: Troponin HS; Complete Time: 21:23 cp 03/15 18:15 Order name: UDS; Complete Time: 21:23 cp 03/15 18:15 Order name: Urine Microscopic Only; Complete Time: 21:23 cp 03/15 18:15 Order name: PREGU; Complete Time: 21:23 cp 03/15 18:15 Order name: XRAY Chest (1 view); Complete Time: 21:23 cp 03/15 18:15 Order name: EKG; Complete Time: 18:16 cp 03/15 18:15 Order name: Cardiac monitoring; Complete Time: 19:52 cp 03/15 18:15 Order name: EKG - Nurse/Tech; Complete Time: 18:58 cp 03/15 18:15 Order name: IV Saline Lock; Complete Time: 19:52 cp 03/15 18:15 Order name: Labs collected and sent; Complete Time: 19:52 cp 03/15 18:15 Order name: O2 Per Protocol; Complete Time: 19:52 cp 03/15 18:15 Order name: O2 Sat Monitoring; Complete Time: 19:52 cp EC:03 Rate is 80 beats/min. Rhythm is regular. OK interval is normal. QRS interval is normal. cp QT interval is normal. T waves are Inverted in lead aVR. Interpreted by me. Reviewed by me. Administered Medications: 19:40 Drug: Ketorolac IVP 15 mg IVP once Route: IVP; Site: right forearm; jj7 22:33 Follow up: Response: No adverse reaction; Pain is decreased me1 19:40 Drug: NS 0.9% IV 1000 ml IV at 1 bolus Per protocol; 1000 mL bolus Route: IV; Rate: 1 jj7 bolus; Site: right forearm; 22:33 Follow up: IV Status: Completed infusion me1 22:00 Drug: Albuterol Inhalation 2.5 mg Inhalation once Route: Inhalation; me1 22:32 Follow up: Response: No adverse reaction; Wheezing diminished me1 Disposition Summary: 03/15/23 22:13 Discharge Ordered Notes: Location: Home cp Problem: new cp Symptoms: have improved cp Condition: Stable cp Diagnosis - Chest pain, unspecified cp Followup: cp - With: Private Physician - When: 2 - 3 days - Reason: Recheck today's complaints Discharge Instructions: - Discharge Summary Sheet cp - Nonspecific Chest Pain, Adult cp Forms: - Medication Reconciliation Form cp - Thank You Letter cp - Antibiotic Education cp - Prescription Opioid Use cp - Patient Portal Instructions cp - Leadership Thank You Letter cp Prescriptions: - albuterol sulfate 90 mcg/actuation Inhalation HFA Aerosol Inhaler - inhale 1 inhalation INHALATION route every 4 to 6 hours as needed for cp bronchospasm; administer via ventilator; 1 unit; Refills: 0, Product Selection Permitted - Diclofenac Sodium 75 mg Oral Tablet Sustained Release - take 1 tablet ORAL route 2 times per day; 30 tablet; Refills: 0, Product cp Selection Permitted Signatures: Dispatcher [employer] EDAngella Crystal RN RN aa5 John Barry PA PA cp Johnson, Juwairiyah, RN RN jj7 Kailyn Frankel RN RN me1
--- NOTE | 2023-03-15 22:13 | ER ---
Nurse's Notes [facility] Name: Sanya Kearney Age: 27 yrs Sex: Female : 1995 Arrival Date: 03/15/2023 Time: 17:41 Bed 12 Private MD: Diagnosis: Chest pain, unspecified Presentation: 03/15 18:45 Chief complaint: Patient states: chest pain that began this morning radiating to left aa5 arm and left shoulder. Denies cough, denies fever. 18:45 Coronavirus screen: At this time, the client does not indicate any symptoms associated aa5 with coronavirus-19. Ebola Screen: Patient denies travel to an Ebola-affected area in the 21 days before illness onset. Initial Sepsis Screen: Does the patient meet any 2 criteria? No. Patient's initial sepsis screen is negative. Does the patient have a suspected source of infection? No. Patient's initial sepsis screen is negative. Risk Assessment: Do you want to hurt yourself or someone else? Patient reports no desire to harm self or others. Onset of symptoms was March 15, 2023. 18:45 Acuity: GILL 3 aa5 18:45 Method Of Arrival: Ambulatory aa5 RECAPPER: 18:51 LMP 03/09/2023, unknown aa5 Historical: - Allergies: 18:51 No Known Allergies; aa5 - PMHx: 18:51 None; aa5 - PSHx: 18:51 None; aa5 - Immunization history:: Adult Immunizations unknown. - Social history:: Smoking status: Patient denies any tobacco usage or history of. Screenin:30 [facility] ED Fall Risk Assessment (Adult) History of falling in the last 3 months, [id number] including since admission No falls in past 3 months (0 pts) Confusion or Disorientation No (0 pts) Intoxicated or Sedated No (0 pts) Impaired Gait No (0 pts) Mobility Assist Device Used No (0 pt) Altered Elimination No (0 pt) Score/Fall Risk Level 0 - 2 = Low Risk Oriented to surroundings, Maintained a safe environment. Abuse screen: Denies threats or abuse. Nutritional screening: No deficits noted. Tuberculosis screening: No symptoms or risk factors identified. Assessment: 19:30 Reassessment: ASSUMED CARE OF PT. PT MOVED TO BED. NO DISTRESS NOTED. VS STABLE. CALL jj7 FALCON IN REACH. General: Appears in no apparent distress. uncomfortable, Behavior is calm, cooperative, appropriate for age. Pain: Complains of pain in chest Pain does not radiate. Pain currently is 7 out of 10 on a pain scale. Cardiovascular: Capillary refill < 3 seconds Clubbing of nail beds is absent JVD is absent Patient's skin is warm and dry. Rhythm is regular Chest pain is described as Pain is 7 out of 10 on a pain scale. 22:32 Pain: Pain began suddenly. me1 Vital Signs: 18:45 BP 135 / 81; Pulse 85; Resp 19 S; Temp 98(TE); Pulse Ox 100% on R/A; Weight 117.93 kg aa5 (R); Height 5 ft. 8 in. (R); 19:30 BP 136 / 87; Pulse 88; Resp 17; Pulse Ox 99% ; jj7 20:30 BP 157 / 77; Pulse 90; Resp 18; Pulse Ox 98% on R/A; me1 21:30 BP 136 / 87; Pulse 100; Resp 20; Pulse Ox 99% on R/A; me1 21:30 BP 141 / 82; Pulse 89; Resp 17; Pulse Ox 98% on R/A; me1 18:45 Body Mass Index 39.53 (117.93 kg, 172.72 cm) aa5 ED Course: 17:43 Patient arrived in ED. mg5 17:46 John Barry PA is PHCP. cp 17:46 John Cherry MD is Attending Physician. cp 18:45 Arm band placed on. aa5 18:51 Triage completed. aa5 18:55 EKG completed in triage. Results shown to . aa5 19:06 XRAY Chest (1 view) In Process Unspecified. EDMS 19:27 Mari Low, NED is Primary Nurse. jj7 19:30 Patient has correct armband on for positive identification. Bed in low position. Call jj7 light in reach. Side rails up X 1. Client placed on continuous cardiac and pulse oximetry monitoring. NIBP monitoring applied. Warm blanket given. 19:40 Inserted saline lock: 20 gauge in right forearm, using aseptic technique. Blood jj7 collected. 19:52 Basic Metabolic Panel Sent. jj7 19:52 CBC with Diff Sent. jj7 19:52 D-Dimer Sent. jj7 19:52 LFT's Sent. jj7 19:52 Magnesium Sent. jj7 19:52 PT-INR Sent. 19:52 Troponin HS Sent. 19:52 UDS Sent. j 19:52 Urine Microscopic Only Sent. jj 19:52 PREGU Sent. jj7 22:31 No provider procedures requiring assistance completed. IV discontinued, intact, me1 bleeding controlled, No redness/swelling at site. Pressure dressing applied. Patient maintains SpO2 saturation greater than 95% on room air. 22:32 Provided Education on: POC. Verbalized understanding. . me1 Administered Medications: 19:40 Drug: Ketorolac IVP 15 mg IVP once Route: IVP; Site: right forearm; jj7 22:33 Follow up: Response: No adverse reaction; Pain is decreased me1 19:40 Drug: NS 0.9% IV 1000 ml IV at 1 bolus Per protocol; 1000 mL bolus Route: IV; Rate: 1 jj7 bolus; Site: right forearm; 22:33 Follow up: IV Status: Completed infusion me1 22:00 Drug: Albuterol Inhalation 2.5 mg Inhalation once Route: Inhalation; me1 22:32 Follow up: Response: No adverse reaction; Wheezing diminished me1 Medication: 19:30 VIS not applicable for this client. jj7 Outcome: 22:13 Discharge ordered by . jigar 22:31 Discharged to home ambulatory, me1 22:31 Condition: stable 22:31 Discharge instructions given to patient, Instructed on discharge instructions, follow up and referral plans. medication usage, Demonstrated understanding of instructions, follow-up care, medications, Prescriptions given X 2, 22:32 Patient left the ED. me1 Signatures: Dispatcher [employer] Angella Jang RN RN aa5 John Barry PA PA Mari Santos RN RN jj7 Kailyn Frankel RN RN me1 Francine Valencia mg5
[2023-03-16 00:20] VITALS: TEMP 98
[2023-03-16 00:23] VITALS: O2SAT 98
[2023-03-16 00:24] VITALS: BP 141/82
--- NOTE | 2023-03-17 15:19 | EKG ---
Test Date: 2023-03-15 Test Time: 18:55:08 Fire Assistant: TM MEASUREMENT RESULTS: Intervals: Rate: 80 CO: 148 QRSD: 78 QT: 384 QTc: 442 [place]: P: 48 CO: 148 QRS: 37 T: 28 INTERPRETIVE STATEMENTS: Normal sinus rhythm Possible Inferior infarct, age undetermined Abnormal ECG No previous ECG available for comparison Electronically Signed On 03-17-23 15:13:08 NURSE'S COMPANION by Benjamin Batista
== END 2023-03-15 22:32 | disposition home or self-care (01) ==
LOC: ER 17:41
DX: R07.9 Chest pain, unspecified (principal); R20.2 Paresthesia of skin
CPT/HCPCS: 96361; 93005; 85025; 80048; 36415; 83735; 81025; 85610; 85379; 80076; 81015; 84484; 80307; 71045; 96374; 99285; J7613; J7030

== ENCOUNTER → 2023-04-23 | Emergency (ER) | payer OTHER, SELFPAY ==
[~2023-04-23] MED LIST: AZITHROMYCIN 250 MG TAB ONE; predniSONE 20 MG TAB ONE
--- OUTSIDE RECORDS SUMMARY | 2023-04-23 12:18 | XMS REPORT | Continuity of Care Document ---
Author Name Unknown Address [address] [facility] [place] [address] [facility] thconnect Address [address] [facility] [address] [place] [address] Care Team Providers Care Track Supervisor Name Role Phone Arlene Perez Primary Care Physicia n Arlene Perez Attending Clinician + Doctor Unassigned, [place] Attending Clinician U Griselda Chance Attending Clinician UnaGRISELDA Cotton Attending Clinician Unavailab ARLENE Lopez Attending Clinician Unavail able Woo Ellis MD Attending Clinician [phone] WOO ELLIS Attending Clinician UnavailRoberto Ellsworth DO Attending Clinician [phone] Jose Manuel Esteban DO Attending Clinician [phone] Ruben MARINO, Soraya Attending Clinician Sowmya vailable Ultrasound, Ang[facility] Attending Clinician UnavailGeronimo Floyd MD Attending Clinician [phone] GERONIMO RICO Attending Clinician Unavailable Terese Quiroz Attending Clinician Unavailabl e LISA ESPINOZA Attending Clinician Unavailabl e Lab, Ang[facility] Attending Clinician Unavailable Brandon Gayle MD Attending Clinician [phone] BRANDON GAYLE Attending Clinician Unavailable Enmanuel ENGINEERING DESIGN SUPERVISORLisa Attending Clinician [phone] Lab, [facility] Attending Clinician Unavailable Juancarlos Merida MD Attending Clinician + JUANCARLOS MERIDA Attending Clinician Unav ailable 1, [facility] Us Room Attending Clinician Unavailab Woo Shah MD Admitting Clinician [phone] WOO ELLIS Admitting Clinician Unavailabl e Payers Payer Name Policy Type Policy Number Effective Date Expirati on Date Source Problems Condition Name Condition Details Condition Category Status Onset Date Resolution Date Last Treatment Date Treating Clinician Comments Source BMI 40.0-44.9, adult BMI 40.0-44.9, adult Disease Active 8-03 00:00: 00 [facility] Screen for STD (sexually transmitte d disease) Screen for STD (sexually transmitte d disease) Disease Active 7-13 00:00: 00 [facility] Dysuria Dysuria Disease Active 6-21 00:00: 00 [facility] Class 3 severe obesity due to excess calories with body mass index (BMI) of 40.0 to 44.9 in adult, unspecifie d whether serious comorbidit y present Class 3 severe obesity due to excess calories with body mass index (BMI) of 40.0 to 44.9 in adult, unspecifie d whether serious comorbidit y present Disease Active 2020-04 1-12 00:00: 00 [facility] Well woman exam Well woman exam Disease Active 8- 00:00: 00 [facility] Obesity (BMI 30-39.9) Obesity (BMI 30-39.9) Disease Active 10-27 00:00: 00 [facility] History of depression History of depression Disease Active 2016-04 00:00: 00 [facility] Allergies, Adverse Reactions, Alerts Allergy Name Allergy Type Status Severity Reaction(s) Onset Date Inactive Date Treating Clinician Comments Source NO KNOWN ALLERGIE S Drug Class Active [facility] Social History Social Habit Start Date Stop Date Quantity Comments [facility] Exposure to SARS-CoV-2 (event) 2021-11-23 00:00:00 2021-12-03 14:18:00 Not sure [facility] Alcohol intake 2021-02-27 00:00:00 2021-02-27 00:00:00 Current non-drinker of alcohol (finding) [facility] History of Social function 2018-10-26 00:00:00 2018-10-26 00:00:00 [facility] Tobacco use and exposure 2017-03-14 00:00:00 2017-03-14 00:00:00 Smokeless tobacco non-user [facility] Sex Assigned At 1995 00:00:00 1995 00:00:00 [facility] Smoking Status Start Date Stop Date Source Never smoked tobacco [facility] Medications Ordered Medication Name Filled Medication Name Start Date Stop Date Current Medication? Ordering Clinician Indication Dosage Frequency Signature (SIG) Comments Components Source norethindro ne 0.35 mg tablet 12-03 00:00: 00 Yes [id number] 1{tbl} Take 1 tablet by mouth in the morning. [facility] norethindro ne 0.35 mg tablet 12-03 00:00: 00 Yes [id number] 1{tbl} Take 1 tablet by mouth in the morning. [facility] norethindro ne 0.35 mg tablet 12-03 00:00: 00 Yes [id number] 1{tbl} Take 1 tablet by mouth in the morning. [facility] norethindro ne 0.35 mg tablet 12-03 00:00: 00 Yes [id number] 1{tbl} Take 1 tablet by mouth in the morning. [facility] norethindro ne 0.35 mg tablet 12-03 00:00: 00 Yes [id number] 1{tbl} Take 1 tablet by mouth in the morning. [facility] vit calc,iron,f olic ( VITAMIN ORAL) 10-03 08:26: 33 10-03 00:00 :00 No Take by mouth. [facility] vit calc,iron,f olic ( VITAMIN ORAL) 10-03 08:26: 10-03 00:00 :00 No Take by mouth. [facility] vit calc,iron,f olic ( VITAMIN ORAL) 10-03 08:26: 33 10-03 00:00 :00 No Take by mouth. [facility] vitamin w/FA tablet 10-03 00:00: 00 Yes [id number] 1{tbl} Take 1 tablet by mouth daily. [facility] docusate 100 mg capsule 10-03 00:00: 00 Yes [id number] 200mg Take 2 capsules by mouth once daily as needed for Constipati on. [facility] ferrous sulfate 325 mg (65 mg iron) tablet 10-03 00:00: 00 Yes [id number] 325mg Take 1 tablet by mouth 2 (two) times daily. [facility] ibuprofen 600 mg tablet 10-03 00:00: 00 Yes [id number] 600mg Take 1 tablet by mouth every 6 (six) hours as needed (Pain). Take with food or milk. [facility] vitamin w/FA tablet 10-03 00:00: 00 Yes [id number] 1{tbl} Take 1 tablet by mouth daily. [facility] docusate 100 mg capsule 10-03 00:00: 00 Yes [id number] 200mg Take 2 capsules by mouth once daily as needed for Constipati on. [facility] ferrous sulfate 325 mg (65 mg iron) tablet 10-03 00:00: 00 Yes [id number] 325mg Take 1 tablet by mouth 2 (two) times daily. [facility] ibuprofen 600 mg tablet 10-03 00:00: 00 Yes [id number] 600mg Take 1 tablet by mouth every 6 (six) hours as needed (Pain). Take with food or milk. [facility] vitamin w/FA tablet 10-03 00:00: 00 Yes [id number] 1{tbl} Take 1 tablet by mouth daily. [facility] docusate 100 mg capsule 10-03 00:00: 00 Yes [id number] 200mg Take 2 capsules by mouth once daily as needed for Constipati on. [facility] ferrous sulfate 325 mg (65 mg iron) tablet 10-03 00:00: 00 Yes [id number] 325mg Take 1 tablet by mouth 2 (two) times daily. [facility] ibuprofen 600 mg tablet 10-03 00:00: 00 Yes [id number] 600mg Take 1 tablet by mouth every 6 (six) hours as needed (Pain). Take with food or milk. [facility] vitamin w/FA tablet 10-03 00:00: 00 Yes [id number] 1{tbl} Take 1 tablet by mouth daily. [facility] docusate 100 mg capsule 10-03 00:00: 00 Yes [id number] 200mg Take 2 capsules by mouth once daily as needed for Constipati on. [facility] ferrous sulfate 325 mg (65 mg iron) tablet 10-03 00:00: 00 Yes [id number] 325mg Take 1 tablet by mouth 2 (two) times daily. [facility] ibuprofen 600 mg tablet 10-03 00:00: 00 Yes [id number] 600mg Take 1 tablet by mouth every 6 (six) hours as needed (Pain). Take with food or milk. [facility] vitamin w/FA tablet 10-03 00:00: 00 Yes [id number] 1{tbl} Take 1 tablet by mouth daily. [facility] docusate 100 mg capsule 10-03 00:00: 00 Yes [id number] 200mg Take 2 capsules by mouth once daily as needed for Constipati on. [facility] ferrous sulfate 325 mg (65 mg iron) tablet 10-03 00:00: 00 Yes [id number] 325mg Take 1 tablet by mouth 2 (two) times daily. [facility] ibuprofen 600 mg tablet 10-03 00:00: 00 Yes [id number] 600mg Take 1 tablet by mouth every 6 (six) hours as needed (Pain). Take with food or milk. [facility] vitamin w/FA tablet 10-03 00:00: 00 Yes [id number] 1{tbl} Take 1 tablet by mouth daily. [facility] docusate 100 mg capsule 10-03 00:00: 00 Yes [id number] 200mg Take 2 capsules by mouth once daily as needed for Constipati on. [facility] ferrous sulfate 325 mg (65 mg iron) tablet 10-03 00:00: 00 Yes [id number] 325mg Take 1 tablet by mouth 2 (two) times daily. [facility] ibuprofen 600 mg tablet 10-03 00:00: 00 Yes [id number] 600mg Take 1 tablet by mouth every 6 (six) hours as needed (Pain). Take with food or milk. [facility] vitamin w/FA tablet 10-03 00:00: 00 Yes [id number] 1{tbl} Take 1 tablet by mouth daily. [facility] docusate 100 mg capsule 10-03 00:00: 00 Yes [id number] 200mg Take 2 capsules by mouth once daily as needed for Constipati on. [facility] ferrous sulfate 325 mg (65 mg iron) tablet 10-03 00:00: 00 Yes [id number] 325mg Take 1 tablet by mouth 2 (two) times daily. [facility] ibuprofen 600 mg tablet 10-03 00:00: 00 Yes [id number] 600mg Take 1 tablet by mouth every 6 (six) hours as needed (Pain). Take with food or milk. [facility] proMETHazin e 25 mg tablet 2020-04 00:00: 00 10-03 00:00 :00 No [id number] 25mg Take 1 tablet by mouth every 4 (four) hours as needed for Nausea and Vomiting (N/V). [facility] PNV 67-iron ps-folate no.1-dha (VITAFOL ULTRA) 29 mg iron- 1 mg-200 mg Cap 2020-04 00:00: 00 10-03 00:00 :00 No [id number] 1{capsu le} Take 1 capsule by mouth daily. [facility] PNV 67-iron ps-folate no.1-dha (VITAFOL ULTRA) 29 mg iron- 1 mg-200 mg Cap 2020-04 00:00: 00 10-03 00:00 :00 No [id number] 1{capsu le} Take 1 capsule by mouth daily. [facility] PNV 67-iron ps-folate no.1-dha (VITAFOL ULTRA) 29 mg iron- 1 mg-200 mg Cap 2020-04 00:00: 00 10-03 00:00 :00 No [id number] 1{capsu le} Take 1 capsule by mouth daily. [facility] Immunizations Ordered Immunization Name Filled Immunization Name Date Status Comments Source Rho (d) Immune Globulin 2021-10-02 00:00:00 Completed [facility] Rho (d) Immune Globulin 2021-10-02 00:00:00 Completed [facility] Rho (d) Immune Globulin 2021-10-02 00:00:00 Completed [facility] TDAP 2021-07-22 00:00:00 Completed [facility] Rho (d) Immune Globulin 2021-07-22 00:00:00 Completed [facility] TDAP 2021-07-22 00:00:00 Completed [facility] Rho (d) Immune Globulin 2021-07-22 00:00:00 Completed [facility] TDAP 2021-07-22 00:00:00 Completed [facility] Rho (d) Immune Globulin 2021-07-22 00:00:00 Completed [facility] HPV9 2017-12-05 00:00:00 Completed [facility] HPV9 2017-12-05 00:00:00 Completed [facility] HPV9 2017-12-05 00:00:00 Completed [facility] HPV9 2017-10-29 00:00:00 Completed [facility] HPV9 2017-10-29 00:00:00 Completed [facility] HPV9 2017-10-29 00:00:00 Completed [facility] Rho (d) Immune Globulin 2017-10-28 00:00:00 Completed [facility] Rho (d) Immune Globulin 2017-10-28 00:00:00 Completed [facility] Rho (d) Immune Globulin 2017-10-28 00:00:00 Completed [facility] TDAP 2017-08-16 00:00:00 Completed [facility] Rho (d) Immune Globulin 2017-08-16 00:00:00 Completed [facility] TDAP 2017-08-16 00:00:00 Completed [facility] Rho (d) Immune Globulin 2017-08-16 00:00:00 Completed [facility] TDAP 2017-08-16 00:00:00 Completed [facility] Rho (d) Immune Globulin 2017-08-16 00:00:00 Completed [facility] Influenza Virus Vaccine - Whole 2017-02-16 00:00:00 Completed [facility] Influenza Virus Vaccine - Whole 2017-02-16 00:00:00 Completed [facility] Influenza Virus Vaccine - Whole 2017-02-16 00:00:00 Completed [facility] Influenza Virus Vaccine - Whole Unknown Completed [facility] TDAP Unknown Completed [facility] Rho (d) Immune Globulin Unknown Completed [facility] Rho (d) Immune Globulin Unknown Completed [facility] HPV9 Unknown Completed [facility] HPV9 Unknown Completed [facility] TDAP Unknown Completed [facility] Rho (d) Immune Globulin Unknown Completed [facility] Rho (d) Immune Globulin Unknown Completed [facility] Influenza Virus Vaccine - Whole Unknown Completed [facility] TDAP Unknown Completed [facility] Rho (d) Immune Globulin Unknown Completed [facility] Rho (d) Immune Globulin Unknown Completed [facility] HPV9 Unknown Completed [facility] HPV9 Unknown Completed [facility] TDAP Unknown Completed [facility] Rho (d[facility] Immune Globulin Unknown Completed [facility] Rho (d) Immune Globulin Unknown Completed [facility] Influenza Virus Vaccine - Whole Unknown Completed [facility] TDAP Unknown Completed [facility] Rho (d) Immune Globulin Unknown Completed [facility] Rho (d) Immune Globulin Unknown Completed [facility] HPV9 Unknown Completed [facility] HPV9 Unknown Completed [facility] TDAP Unknown Completed [facility] Rho (d[facility] Immune Globulin Unknown Completed [facility] Rho (d) Immune Globulin Unknown Completed [facility] Influenza Virus Vaccine - Whole Unknown Completed [facility] TDAP Unknown Completed [facility] Rho (d) Immune Globulin Unknown Completed [facility] Rho (d) Immune Globulin Unknown Completed [facility] HPV9 Unknown Completed [facility] HPV9 Unknown Completed [facility] TDAP Unknown Completed [facility] Rho (d) Immune Globulin Unknown Completed [facility] Rho (d) Immune Globulin Unknown Completed [facility] Influenza Virus Vaccine - Whole Unknown Completed [facility] TDAP Unknown Completed [facility] Rho (d) Immune Globulin Unknown Completed [facility] Rho (d) Immune Globulin Unknown Completed [facility] HPV9 Unknown Completed [facility] HPV9 Unknown Completed [facility] TDAP Unknown Completed [facility] Rho (d) Immune Globulin Unknown Completed [facility] Influenza Virus Vaccine - Whole Unknown Completed [facility] TDAP Unknown Completed [facility] Rho (d) Immune Globulin Unknown Completed [facility] Rho (d) Immune Globulin Unknown Completed [facility] HPV9 Unknown Completed [facility] HPV9 Unknown Completed [facility] TDAP Unknown Completed [facility] Rho (d) Immune Globulin Unknown Completed [facility] Influenza Virus Vaccine - Whole Unknown Completed [facility] TDAP Unknown Completed [facility] Rho (d) Immune Globulin Unknown Completed [facility] Rho (d) Immune Globulin Unknown Completed [facility] HPV9 Unknown Completed [facility] HPV9 Unknown Completed [facility] TDAP Unknown Completed [facility] Rho (d) Immune Globulin Unknown Completed [facility] Influenza Virus Vaccine - Whole Unknown Completed [facility] TDAP Unknown Completed [facility] Rho (d) Immune Globulin Unknown Completed [facility] Rho (d) Immune Globulin Unknown Completed [facility] HPV9 Unknown Completed [facility] HPV9 Unknown Completed [facility] TDAP Unknown Completed [facility] Rho (d) Immune Globulin Unknown Completed [facility] Influenza Virus Vaccine - Whole Unknown Completed [facility] TDAP Unknown Completed [facility] Rho (d) Immune Globulin Unknown Completed [facility] Rho (d) Immune Globulin Unknown Completed [facility] HPV9 Unknown Completed [facility] HPV9 Unknown Completed [facility] TDAP Unknown Completed [facility] Rho (d) Immune Globulin Unknown Completed [facility] Influenza Virus Vaccine - Whole Unknown Completed [facility] TDAP Unknown Completed [facility] Rho (d) Immune Globulin Unknown Completed [facility] Rho (d) Immune Globulin Unknown Completed [facility] HPV9 Unknown Completed [facility] HPV9 Unknown Completed [facility] Influenza Virus Vaccine - Whole Unknown Completed [facility] TDAP Unknown Completed [facility] Rho (d) Immune Globulin Unknown Completed [facility] Rho (d) Immune Globulin Unknown Completed [facility] HPV9 Unknown Completed [facility] HPV9 Unknown Completed [facility] Influenza Virus Vaccine - Whole Unknown Completed [facility] TDAP Unknown Completed [facility] Rho (d) Immune Globulin Unknown Completed [facility] Rho (d) Immune Globulin Unknown Completed [facility] HPV9 Unknown Completed [facility] HPV9 Unknown Completed [facility] Influenza Virus Vaccine - Whole Unknown Completed [facility] TDAP Unknown Completed [facility] Rho (d) Immune Globulin Unknown Completed [facility] Rho (d) Immune Globulin Unknown Completed [facility] HPV9 Unknown Completed [facility] HPV9 Unknown Completed [facility] Influenza Virus Vaccine - Whole Unknown Completed [facility] TDAP Unknown Completed [facility] Rho (d) Immune Globulin Unknown Completed [facility] Rho (d) Immune Globulin Unknown Completed [facility] HPV9 Unknown Completed [facility] HPV9 Unknown Completed [facility] Influenza Virus Vaccine - Whole Unknown Completed [facility] TDAP Unknown Completed [facility] Rho (d) Immune Globulin Unknown Completed [facility] Rho (d) Immune Globulin Unknown Completed [facility] HPV9 Unknown Completed [facility] HPV9 Unknown Completed [facility] Vital Signs Vital Name Observation Time Observation Value Comments S ource Systolic blood pressure 2021-12-03 19:19:00 129 mm[Hg] [facility] Diastolic blood pressure 2021-12-03 19:19:00 68 mm[Hg] [facility] Heart rate 2021-12-03 19:19:00 76 /min [facility] Body temperature 2021-12-03 19:19:00 36.89 Tiffanie [facility] Respiratory rate 2021-12-03 19:19:00 18 /min [facility] Body weight 2021-12-03 19:19:00 120.884 kg [facility] BMI 2021-12-03 19:19:00 40.52 kg/m2 [facility] Procedures Procedure Date / Time Performed Performing Clinicia n Source POCT TEST 2021-12-03 19:22:00 Eliana Duarte [facility] Encounters Start Date/Time End Date/Time Encounter Type Admission Type Attending Clinicians Care Facility Care Department Encounter ID Source 2022-06-29 00:00:00 2022-06-29 00:00:00 Telephone Arlene Kaplan [facility] AC[facility] LO[facility] MATERNAL & CHILD HEALTH [facility] [id number] [facility] 2022-03-08 14:00:00 2022-03-08 14:00:00 Outpatient R [facility] [id number] [facility] 2022-01-11 00:00:00 2022-01-11 00:00:00 Refill Ctousmane Arlene Seo [facility] ACID LOADER [facility] & CHILD [facility] [id number] [facility] 2022-01-11 00:00:00 2022-01-11 00:00:00 Patient Secure Msg Doctor Unassigned, [place] [facility] [id number] [facility] 2021-12-25 00:00:00 2021-12-25 00:00:00 Patient Secure Msg Griselda Duarte [facility] ACID LOADER [facility] CHILD [facility] [id number] [facility] 2021-12-03 14:30:00 2021-12-03 14:32:18 Outpatient R GRISELDA DUARTE [facility] [id number] [facility] 2021-12-03 14:30:00 2021-12-03 14:32:18 Office Visit Griselda Duarte [facility] ACID LOADER [facility] & CHILD [facility] 1.840.114 350.1.13.10 4.2.7.2.686 [id number] 107 [id number] [facility] 2021-12-03 14:30:00 2021-12-03 14:30:00 Outpatient R GRISELDA DUARTE [facility] [id number] [facility] 2021-11-18 09:45:00 2021-11-18 10:31:04 Outpatient R GRISELDA DUARTE [facility] [id number] [facility] 2021-11-18 09:45:00 2021-11-18 10:31:04 Office Visit Griselda Duarte [facility] ACID LOADER [facility] CHILD [facility] 1.2.840.114 350.1.13.10 4.2.7.2.686 [id number] 107 [id number] [facility] 2021-11-18 09:45:00 2021-11-18 09:45:00 Outpatient R GRISELDA DUARTE [facility] [id number] [facility] 2021-11-10 00:00:00 2021-11-10 00:00:00 Patient Secure Msg Doctor Unassigned, [place] [facility] ACID LOADER [facility] CHILD [facility] 1.840.114 350.1.13.10 4.2.7.2.686 [id number] 107 [id number] [facility] 2021-10-28 09:45:00 2021-10-28 10:29:10 Outpatient R ARLENE KAPLAN [facility] [id number] [facility] 2021-10-28 09:45:00 2021-10-28 10:29:10 Routine Visit Arlene Kaplan [facility] ACID LOADER [facility] CHILD [facility] 1.840.114 350.1.13.10 4.2.7.2.686 [id number] 107 [id number] [facility] 2021-10-07 00:00:00 2021-10-07 00:00:00 Telephone Griselda Duarte [facility] ACID LOADER [facility] CHILD [facility] 1.2840.114 350.1.13.10 4.2.7.2.686 [id number] 107 [id number] [facility] 2021-10-07 00:00:00 2021-10-07 00:00:00 Patient Secure Msg Doctor Unassigned, [place] [facility] 1.2.840.114 350.1.13.10 4.2.7.2.686 [id number] 107 [id number] [facility] 2021-10-06 15:30:00 2021-10-06 15:30:00 Routine Visit Bennett Duartesean Richey [facility] ACID LOADER [facility] MATERNAL & CHILD HEALTH [facility] 1.2.840.114 350.1.13.10 4.2.7.2.686 [id number] 107 [id number] [facility] 2021-10-06 15:30:00 2021-10-06 13:34:00 Outpatient R CRISTINA DUARTEWILBER [facility] [id number] [facility] 2021-10-06 00:00:00 2021-10-06 00:00:00 Telephone Bennett Duartesean Kaiden [facility] ACID LOADER [facility] & CHILD [facility] 1.2.840.114 350.1.13.10 4.2.7.2.686 [id number] 107 [id number] [facility] 2021-10-01 20:26:00 2021-10-03 13:00:00 Hospital Encounter RhondaWoo [facility] 1.2840.114 350.1.13.10 4.2.7.2.686 [id number] [facility] 2021-10-01 20:26:00 2021-10-03 13:00:00 Inpatient P WOO ELLIS [facility] VICTOR M [id number] [facility] 2021-10-02 20:01:15 2021-10-02 20:01:15 Anesthesia Event Macon [facility] 1.2840.114 350.1.13.10 4.2.7.2.686 [id number] 132 [id number] [facility] 2021-10-01 23:15:00 2021-10-02 06:53:00 [facility] 1.2.840.114 350.1.13.10 4.2.7.2.686 [id number] 132 [id number] [facility] 2021-09-28 15:15:00 2021-09-28 15:15:00 Outpatient GRISELDA GASPAR [facility] [id number] [facility] 2021-09-21 16:45:00 2021-09-21 17:19:44 Outpatient GRISELDA GASPAR [facility] [id number] [facility] 2021-09-21 16:45:00 2021-09-21 17:00:00 Routine Visit Griselda Duarte [facility] ACID LOADER [facility] & CHILD [facility] 1..114 350.1.13.10 4.2.7.2.686 [id number] 107 [id number] [facility] 2021-09-21 16:45:00 2021-09-21 16:45:00 Outpatient GRISELDA GASPAR [facility] [id number] [facility] 2021-09-15 15:45:00 2021-09-15 15:45:00 Outpatient GRISELDA GASPAR [facility] [id number] [facility] 2021-09-15 00:00:00 2021-09-15 00:00:00 Orders Only Doctor Unassigned, [place] [facility] 1..114 350.1.13.10 4.2.7.2.686 [id number] [facility] 2021-09-10 00:00:00 2021-09-10 00:00:00 Patient Secure Griselda Barreto [facility] ACID LOADER [facility] & CHILD [facility] 1..114 350.1.13.10 4.2.7.2.686 [id number] 107 [id number] [facility] 2021-09-07 00:00:00 2021-09-07 00:00:00 Patient Secure Griselda Barreto [facility] ACID LOADER [facility] & CHILD [facility] 1.0.114 350.1.13.10 4.2.7.2.686 [id number] 107 [id number] [facility] 2021-09-07 00:00:00 2021-09-07 00:00:00 Orders Only Doctor Unassigned, [place] [facility] 1.20.114 350.1.13.10 4.2.7.2.686 [id number] [facility] 2021-09-04 00:00:00 2021-09-04 00:00:00 Patient Secure Soraya Hood [facility] ACID LOADER [facility] MATERNAL & CHILD [facility] 1..114 350.1.13.10 4.2.7.2.686 [id number] 107 [id number] [facility] 2021-08-31 17:45:00 2021-08-31 18:13:35 Outpatient JOSIE GASPARTERRI [facility] [id number] [facility] 2021-08-31 17:45:00 2021-08-31 18:13:35 Routine Visit Josie Duarteterri [facility] ACID LOADER [facility] & CHILD [facility] 1..114 350.1.13.10 4.2.7.2.686 [id number] 107 [id number] [facility] 2021-08-31 13:45:00 2021-08-31 13:45:00 Outpatient JOSIE GASPARTERRI [facility] [id number] [facility] 2021-08-31 11:00:00 2021-08-31 11:00:00 [facility] [id number] [facility] 2021-08-19 00:00:00 2021-08-19 00:00:00 Patient Secure Griselda Barreto [facility] ACID LOADER [facility] & CHILD [facility] 1.2.114 350.1.13.10 4.2.7.2.686 [id number] 107 [id number] [facility] 2021-08-17 17:30:00 2021-08-17 17:54:45 Outpatient R GRISELDA DUARTE [facility] [id number] [facility] 2021-08-17 17:30:00 2021-08-17 17:54:45 Routine Visit Griselda Duarte [facility] ACID LOADER [facility] & CHILD [facility] 1.2.840.114 350.1.13.10 4.2.7.2.686 [id number] 107 [id number] [facility] 2021-08-17 00:00:00 2021-08-17 00:00:00 Patient Secure Msg Griselda Duarte [facility] ACID LOADER [facility] & CHILD [facility] 1.2.840.114 350.1.13.10 4.2.7.2.686 [id number] 107 [id number] [facility] 2021-08-17 00:00:00 2021-08-17 00:00:00 Case Management Griselda Duarte [facility] 1.2.840.114 350.1.13.10 4.2.7.2.686 [id number] 107 [id number] [facility] 2021-08-06 08:00:00 2021-08-06 08:00:00 Outpatient BENNETT GASPARSean [facility] [id number] [facility] 2021-08-03 17:30:00 2021-08-03 17:39:22 Outpatient R GRISELDA DUARTE [facility] [id number] [facility] 2021-08-03 17:30:00 2021-08-03 17:39:22 Routine Visit Griselda Duarte [facility] ACID LOADER [facility] & CHILD [facility] 1.2.840.114 350.1.13.10 4.2.7.2.686 [id number] 107 [id number] [facility] 2021-07-23 00:00:00 2021-07-23 00:00:00 Patient Secure Msg Vernon Cristinagracesean Richey [facility] ACID LOADER [facility] & CHILD [facility] 1..840.114 350.1.13.10 4.2.7.2.686 [id number] 107 [id number] [facility] 2021-07-22 07:45:00 2021-07-22 08:43:32 Outpatient Kaidne DUARTE GRISELDA [facility] [id number] [facility] 2021-07-22 07:45:00 2021-07-22 08:43:32 Routine Visit Vernon Griselda Richey [facility] ACID LOADER [facility] & CHILD [facility] 1..840.114 350.1.13.10 4.2.7.2.686 [id number] 107 [id number] [facility] 2021-07-22 07:45:00 2021-07-22 07:45:00 Outpatient Kaiden DUARTE GRISELDA [facility] [id number] [facility] 2021-07-08 07:45:00 2021-07-08 08:21:42 Outpatient Kaiden DUARTE GRISELDA [facility] [id number] [facility] 2021-07-08 07:45:00 2021-07-08 08:21:42 Routine Visit Vernon Griselda Richey [facility] ACID LOADER [facility] CHILD [facility] 1..840.114 350.1.13.10 4.2.7.2.686 [id number] 107 [id number] [facility] 2021-06-23 07:45:00 2021-06-23 08:08:16 Outpatient Kaiden DUARTEGRISELDA [facility] [id number] [facility] 2021-06-23 07:45:00 2021-06-23 08:08:16 Routine Visit Duarte, Griselda Richey [facility] ACID LOADER [facility] & CHILD [facility] 1..840.114 350.1.13.10 4.2.7.2.686 [id number] 107 [id number] [facility] 2021-05-26 08:45:00 2021-05-26 09:21:15 Outpatient R GRISELDA DUARTE [facility] [id number] [facility] 2021-05-26 08:45:00 2021-05-26 09:21:15 Routine Visit Griselda Duarte [facility] ACID LOADER [facility] & CHILD [facility] ..840.114 350.1.13.10 4.2.7.2.686 [id number] 107 [id number] [facility] 2021-05-26 08:45:00 2021-05-26 08:45:00 Outpatient R GRISELDA DUARTE [facility] [id number] [facility] 2021-05-22 00:00:00 2021-05-22 00:00:00 Abstract Arlene Kaplan [facility] ACID LOADER [facility] & CHILD [facility] 1..840.114 350.1.13.10 4.2.7.2.686 [id number] 107 [id number] [facility] 2021-05-21 10:00:00 2021-05-21 11:18:16 Government Documents Librarian Visit Ultrasound, Geronimo Rose [facility] ACID LOADER [facility] & CHILD [facility] ..840.114 350.1.13.10 4.2.7.2.686 [id number] [facility] 2021-05-21 10:00:00 2021-05-21 10:00:00 Outpatient P [facility] [id number] [facility] 2021-05-21 10:00:00 2021-05-21 10:00:00 Outpatient P GERONIMO RICO [facility] [id number] [facility] 2021-04-29 00:00:00 2021-04-29 00:00:00 Telephone Griselda Duarte [facility] ACID LOADER [facility] MATERNAL & CHILD [facility] .840.114 350.1.13.10 4.2.7.2.686 [id number] 107 [id number] [facility] 2021-04-28 08:45:00 2021-04-28 09:45:10 Outpatient R CRISTINA DUARTEGRACESean [facility] [id number] [facility] 2021-04-28 08:45:00 2021-04-28 09:45:10 Routine Visit Griselda Duarte [facility] ACID LOADER [facility] & CHILD [facility] .840.114 350.1.13.10 4.2.7.2.686 [id number] 107 [id number] [facility] 2021-04-27 00:00:00 2021-04-27 00:00:00 Telephone Terese Quiroz [facility] SPECIALTY [facility] .840.114 350.1.13.10 4.2.7.2.686 [id number] 161 [id number] [facility] 2021-04-24 10:45:00 2021-04-24 10:45:00 Outpatient R LISA ESPINOZA [facility] [id number] [facility] 2021-04-17 13:30:00 2021-04-17 13:30:00 Government Documents Librarian [facility] ACID LOADER [facility] MATERNAL & CHILD [facility] 1..840.114 350.1.13.10 4.2.7.2.686 [id number] 107 [id number] [facility] 2021-04-17 09:00:00 2021-04-17 09:36:13 Outpatient BRANDON NOLAN [facility] [id number] [facility] 2021-04-17 09:00:00 2021-04-17 09:36:13 Telemedici ne Visit Terese Quiroz Joseph W [facility] ACID LOADER [facility] MATERNAL & CHILD [facility] 1.2840.114 350.1.13.10 4.2.7.2.686 [id number] 107 [id number] [facility] 2021-04-17 09:00:00 2021-04-17 09:00:00 Outpatient P [facility] [id number] [facility] 2021-04-17 00:00:00 2021-04-17 00:00:00 Orders Only Doctor Unassigned, [place] [facility] 1.2840.114 350.1.13.10 4.2.7.2.686 [id number] [facility] 2021-04-14 00:00:00 2021-04-14 00:00:00 Telephone Lisa Espinoza [facility] ACID LOADER [facility] MATERNAL & CHILD [facility] 1.840.114 350.1.13.10 4.2.7.2.686 [id number] 107 [id number] [facility] 2021-04-02 00:00:00 2021-04-02 00:00:00 Patient Secure Msg Lisa Espinoza [facility] ACID LOADER [facility] & CHILD [facility] 1.840.114 350.1.13.10 4.2.7.2.686 [id number] 107 [id number] [facility] 2021-04-02 00:00:00 2021-04-02 00:00:00 Telephone Lisa Espinoza [facility] ACID LOADER [facility] MATERNAL & CHILD [facility] 1.2840.114 350.1.13.10 4.2.7.2.686 [id number] 107 [id number] [facility] 2021-04-01 11:00:00 2021-04-01 11:04:08 Government Documents Librarian Visit Lab, [facility] ACID LOADER [facility] MATERNAL & CHILD [facility] 1.840.114 350.1.13.10 4.2.7.2.686 [id number] [facility] 2021-04-01 11:00:00 2021-04-01 11:00:00 Outpatient R JUANCARLOS GARCIA [facility] [id number] [facility] 2021-04-01 10:15:00 2021-04-01 11:00:00 Government Documents Librarian Visit 1, [facility] Room Juancarlos Garcia [facility] ACID LOADER [facility] MATERNAL & CHILD [facility] 1.84.114 350.1.13.10 4.2.7.2.686 [id number] [facility] 2021-03-31 00:00:00 2021-03-31 00:00:00 Patient Secure Lisa Espinoza [facility] ACID LOADER [facility] MATERNAL & CHILD [facility] 1.84.114 350.1.13.10 4.2.7.2.686 [id number] 107 [id number] [facility] 2021-03-27 10:30:00 2021-03-27 10:58:54 Outpatient R LISA ESPINOZA [facility] [id number] [facility] 2021-03-27 10:25:21 2021-03-27 10:58:54 Routine Visit Lisa Espinoza [facility] ACID LOADER [facility] & CHILD [facility] 1.84.114 350.1.13.10 4.2.7.2.686 [id number] 107 [id number] [facility] 2021-03-27 10:30:00 2021-03-27 10:30:00 Outpatient R LISA ESPINOZA [facility] [id number] [facility] 2021-03-09 00:00:00 2021-03-09 00:00:00 Patient Secure Lisa Espinoza [facility] ACID LOADER [facility] & CHILD [facility] 1.84.114 350.1.13.10 4.2.7.2.686 [id number] 107 [id number] [facility] 2021-03-09 00:00:00 2021-03-09 00:00:00 Telephone Arlene Kaplan [facility] ACID LOADER [facility] & CHILD [facility] 1.2.840.114 350.1.13.10 4.2.7.2.686 [id number] 107 [id number] [facility] 2021-03-09 00:00:00 2021-03-09 00:00:00 Telephone Lisa Espinoza [facility] ACID LOADER [facility] CHILD [facility] 1.2.840.114 350.1.13.10 4.2.7.2.686 [id number] 107 [id number] [facility] 2021-03-09 00:00:00 2021-03-09 00:00:00 Orders Only Doctor Unassigned, [place] [facility] 1.2.840.114 350.1.13.10 4.2.7.2.686 [id number] [facility] 2021-03-06 00:00:00 2021-03-06 00:00:00 Patient Secure Msg Doctor Unassigned, [place] [facility] 1.2.840.114 350.1.13.10 4.2.7.2.686 [id number] [facility] 2021-03-05 00:00:00 2021-03-05 00:00:00 Patient Secure Msg Lisa Espinoza [facility] 1.2.840.114 350.1.13.10 4.2.7.2.686 [id number] 107 [id number] [facility] 2021-03-03 13:00:00 2021-03-03 13:00:00 Outpatient R [facility] [id number] [facility] 2021-03-02 10:30:00 2021-03-02 10:15:03 Outpatient R LISA ESPINOZA [facility] [id number] [facility] 2021-03-02 10:01:26 2021-03-02 10:15:03 Government Documents Librarian Visit Lab, [facility] Lisa Espinoza [facility] ACID LOADER [facility] & CHILD [facility] 1.2.840.114 350.1.13.10 4.2.7.2.686 [id number] 107 [id number] [facility] 2021-03-02 00:00:00 2021-03-02 00:00:00 Patient Secure Msg Lisa Espinoza [facility] ACID LOADER [facility] & CHILD [facility] 1.2.840.114 350.1.13.10 4.2.7.2.686 [id number] 107 [id number] [facility] 2021-03-02 00:00:00 2021-03-02 00:00:00 Patient Secure Msg Lisa Espinoza [facility] ACID LOADER [facility] 1.2.840.114 350.1.13.10 4.2.7.2.686 [id number] 107 [id number] [facility] 2021-03-02 00:00:00 2021-03-02 00:00:00 Telephone Lisa Espinoza [facility] ACID LOADER [facility] CHILD [facility] 1.2.840.114 350.1.13.10 4.2.7.2.686 [id number] 107 [id number] [facility] 2021-02-27 13:45:00 2021-02-27 14:56:40 Outpatient R LISA ESPINOZA [facility] [id number] [facility] 2021-02-27 13:41:41 2021-02-27 14:56:40 Initial Visit Lisa Espinoza [facility] ACID LOADER [facility] CHILD [facility] 1.2.840.114 350.1.13.10 4.2.7.2.686 [id number] 107 [id number] [facility] 2021-02-27 13:15:00 2021-02-27 13:15:00 Outpatient R LISA ESPINOZA [facility] [id number] [facility] 2021-02-27 00:00:00 2021-02-27 00:00:00 Orders Only Doctor Unassigned, [place] [facility] 1.2.840.114 350.1.13.10 4.2.7.2.686 [id number] [facility] Results Test Description Test Time Test Comments Results Result Co mments Source [facility]
--- NOTE | 2023-04-23 12:25 | EDPHYS ---
Physician Documentation [facility] [place] Name: Sanya Kearney Age: 27 yrs Sex: Female : 1995 Arrival Date: 04/23/2023 Time: 12:14 Bed 12 Private MD: ED Physician Ken Alvarez HPI: 04/23 12:24 This 27 yrs old Female presents to ER via Ambulatory with complaints of Sore Throat. snw 12:24 The patient presents with sore throat. The patient describes throat pain as raw, snw scratchy. Onset: The symptoms/episode began/occurred suddenly. Historical: - Allergies: 12:22 No Known Allergies; cm10 - Home Meds: 12:22 None [Active]; cm10 - PMHx: 12:22 None; cm10 - PSHx: 12:22 None; cm10 - Immunization history:: Adult Immunizations up to date. - Social history:: Smoking status: Patient denies any tobacco usage or history of. ROS: 12:24 Constitutional: Negative for fever, chills, and weight loss, Eyes: Negative for injury, snw pain, redness, and discharge, Neck: Negative for injury, pain, and swelling, Cardiovascular: Negative for chest pain, palpitations, and edema, Respiratory: Negative for shortness of breath, cough, wheezing, and pleuritic chest pain, Abdomen/GI: Negative for abdominal pain, nausea, vomiting, diarrhea, and constipation, Back: Negative for injury and pain, : Negative for injury, bleeding, discharge, and swelling, MS/Extremity: Negative for injury and deformity, Skin: Negative for injury, rash, and discoloration, Neuro: Negative for headache, weakness, numbness, tingling, and seizure, Psych: Negative for depression, anxiety, suicide ideation, homicidal ideation, and hallucinations, 12:24 ENT: Positive for sore throat, Exam: 12:23 Constitutional: This is a well developed, well nourished patient who is awake, alert, snw and in no acute distress. Head/Face: Normocephalic, atraumatic. Eyes: Pupils equal round and reactive to light, extra-ocular motions intact. Lids and lashes normal. Conjunctiva and sclera are non-icteric and not injected. Cornea within normal limits. Periorbital areas with no swelling, redness, or edema. Neck: Trachea midline, no thyromegaly or masses palpated, and no cervical lymphadenopathy. Supple, full range of motion without nuchal rigidity, or vertebral point tenderness. No Meningismus. Chest/axilla: Normal chest wall appearance and motion. Nontender with no deformity. No lesions are appreciated. Cardiovascular: Regular rate and rhythm with a normal S1 and S2. No gallops, murmurs, or rubs. Normal PMI, no JVD. No pulse deficits. Respiratory: Lungs have equal breath sounds bilaterally, clear to auscultation and percussion. No rales, rhonchi or wheezes noted. No increased work of breathing, no retractions or nasal flaring. Abdomen/GI: Soft, non-tender, with normal bowel sounds. No distension or tympany. No guarding or rebound. No evidence of tenderness throughout. Back: No spinal tenderness. No costovertebral tenderness. Full range of motion. Skin: Warm, dry with normal turgor. Normal color with no rashes, no lesions, and no evidence of cellulitis. MS/ Extremity: Pulses equal, no cyanosis. Neurovascular intact. Full, normal range of motion. Neuro: Awake and alert, GCS 15, oriented to person, place, time, and situation. Cranial nerves II-XII grossly intact. Motor strength 5/5 in all extremities. Sensory grossly intact. Cerebellar exam normal. Normal gait. Psych: Awake, alert, with orientation to person, place and time. Behavior, mood, and affect are within normal limits. 12:23 ENT: External ear(s): are unremarkable, Ear canal(s): are normal, TM's: are normal, Nose: Mouth: is normal, Posterior pharynx: swelling, that is moderate, erythema, that is moderate, Voice: is normal, Vital Signs: 12:21 BP 123 / 72; Pulse 102; Resp 18; Temp 97.9; Pulse Ox 100% on R/A; Weight 127.01 kg; cm10 Height 5 ft. 8 in. ; Pain 10; 12:21 Body Mass Index 42.57 (127.01 kg, 172.72 cm) cm10 12:21 Pain Scale: Adult cm10 MDM: 12:25 Patient medically screened. snw 12:26 Differential diagnosis: Allergic rhinitis, bronchitis, pharyngitis, viral syndrome. snw Data reviewed: vital signs, nurses notes. Counseling: I had a detailed discussion with the patient and/or guardian regarding the historical points, exam findings, and any diagnostic results supporting the discharge/admit diagnosis, the need for outpatient follow up, for definitive care, to return to the emergency department if symptoms worsen or persist or if there are any questions or concerns that arise at home. Special discussion: Based on the history and exam findings, there is no indication for further emergent testing or inpatient evaluation. I discussed with the patient/guardian the need to see the primary care provider for further evaluation of the symptoms. Administered Medications: 13:04 Drug: AZITHromycin PO 500 mg PO once Route: PO; cm10 13:04 Follow up: Response: Medication administered at discharge. cm10 13:04 Drug: predniSONE PO 20 mg PO once Route: PO; cm10 13:04 Follow up: Response: Medication administered at discharge. cm10 Disposition Summary: 04/23/23 12:25 Discharge Ordered Notes: Location: Home snw Condition: Stable snw Diagnosis - Acute pharyngitis, unspecified snw Followup: snw - With: Emergency Department - When: As needed - Reason: Worsening of condition Followup: snw - With: Private Physician - When: 2 - 3 days - Reason: Recheck today's complaints, Continuance of care, Re-evaluation by your physician Discharge Instructions: - Discharge Summary Sheet snw - Pharyngitis snw - Rehydration, Adult snw Forms: - Work release form snw - Medication Reconciliation Form snw - Thank You Letter snw - Antibiotic Education snw - Prescription Opioid Use snw - Patient Portal Instructions snw - Leadership Thank You Letter snw Prescriptions: - Prednisone 20 mg Oral Tablet - take 2 tablets ORAL route once daily for 5 days; 10 tablet; Refills: 0, Product snw Selection Permitted - Zithromax 500 mg Oral Tablet - take 1 tablet ORAL route once daily for 5 days; 5 tablet; Refills: 0, Product snw Selection Permitted Signatures: Aracelis Jalloh FNP-C FNP-Lyn Brown RN RN cm10
--- NOTE | 2023-04-23 12:25 | ER ---
Nurse's Notes [facility] [place] Name: Sanya Kearney Age: 27 yrs Sex: Female : 1995 Arrival Date: 04/23/2023 Time: 12:14 Bed 12 Private MD: Diagnosis: Acute pharyngitis, unspecified Presentation: 04/23 12:21 Chief complaint: Patient states: sore throat and cough onset this morning. Pt noted to cm10 have red and swollen tonsils in triage. Coronavirus screen: Vaccine status: Patient reports being unvaccinated. Client denies travel out of the [place] in the last 14 days. Ebola Screen: Patient denies travel to an Ebola-affected area in the 21 days before illness onset. No symptoms or risks identified at this time. Initial Sepsis Screen: Does the patient meet any 2 criteria? No. Patient's initial sepsis screen is negative. Does the patient have a suspected source of infection? No. Patient's initial sepsis screen is negative. Risk Assessment: Do you want to hurt yourself or someone else? Patient reports no desire to harm self or others. Onset of symptoms was April 23, 2023. 12:21 Method Of Arrival: Ambulatory cm10 12:21 Acuity: GILL 4 cm10 Triage Assessment: 12:58 General: Appears in no apparent distress. comfortable, Behavior is calm, cooperative. cm10 Pain: Complains of pain in throat. EENT: Throat is reddened has enlarged tonsils on right. Neuro: No deficits noted. Level of Consciousness is awake, alert, obeys commands, Oriented to person, place, time, situation. Cardiovascular: No deficits noted. Denies chest pain, shortness of breath, Patient's skin is warm and dry. Respiratory: No deficits noted. Airway is patent Respiratory effort is even, unlabored, Respiratory pattern is regular, symmetrical. GI: No deficits noted. No signs and/or symptoms were reported involving the gastrointestinal system. : No deficits noted. No signs and/or symptoms were reported regarding the genitourinary system. Derm: No deficits noted. No signs and/or symptoms reported regarding the dermatologic system. Musculoskeletal: No deficits noted. No signs and/or symptoms reported regarding the musculoskeletal system. Range of motion: intact in all extremities. Historical: - Allergies: 12:22 No Known Allergies; cm10 - Home Meds: 12:22 None [Active]; cm10 - PMHx: 12:22 None; cm10 - PSHx: 12:22 None; cm10 - Immunization history:: Adult Immunizations up to date. - Social history:: Smoking status: Patient denies any tobacco usage or history of. Screenin:59 [facility] ED Fall Risk Assessment (Adult) History of falling in the last 3 months, cm10 including since admission No falls in past 3 months (0 pts) Confusion or Disorientation No (0 pts) Intoxicated or Sedated No (0 pts) Impaired Gait No (0 pts) Mobility Assist Device Used No (0 pt) Altered Elimination No (0 pt) Score/Fall Risk Level 0 - 2 = Low Risk Oriented to surroundings, Maintained a safe environment, Hourly rounding (assess needs \T\ fall precautionary measures) done. Abuse screen: Denies threats or abuse. Denies injuries from another. Nutritional screening: No deficits noted. Tuberculosis screening: No symptoms or risk factors identified. Vital Signs: 12:21 BP 123 / 72; Pulse 102; Resp 18; Temp 97.9; Pulse Ox 100% on R/A; Weight 127.01 kg; cm10 Height 5 ft. 8 in. ; Pain 10/10; 12:21 Body Mass Index 42.57 (127.01 kg, 172.72 cm) cm10 12:21 Pain Scale: Adult cm10 ED Course: 12:17 Patient arrived in ED. im 12:18 Aracel[facility]alloh [facility] snw 12:18 Ken Alvarez MD is Attending Physician. snw 12:22 Triage completed. cm10 12:23 Arm band placed on Patient placed in an exam room, on a stretcher. cm10 12:59 Patient has correct armband on for positive identification. Bed in low position. Call cm10 light in reach. Provided Education on: ER process and procedures. . 12:59 No provider procedures requiring assistance completed. Patient did not have IV access cm10 during this emergency room visit. Administered Medications: 13:04 Drug: AZITHromycin PO 500 mg PO once Route: PO; cm10 13:04 Follow up: Response: Medication administered at discharge. cm10 13:04 Drug: predniSONE PO 20 mg PO once Route: PO; cm10 13:04 Follow up: Response: Medication administered at discharge. cm10 Medication: 12:59 VIS not applicable for this client. cm10 Outcome: 12:25 Discharge ordered by . lilly 13:05 Discharged to home ambulatory, cm10 13:05 Condition: good 13:05 Discharge instructions given to patient, Instructed on discharge instructions, follow up and referral plans. medication usage, Demonstrated understanding of instructions, follow-up care, medications, Prescriptions given X 2, 13:05 Patient left the ED. cm10 Signatures: Aracelis Jalloh FNP-C [employer]PER[employer]OR-Jessiew Leanne Severino Clarissa, RN RN cm10
[2023-04-23 13:44] VITALS: BP 123/72; TEMP 97.9; O2SAT 100
== END ==
LOC: ER 12:14
DX: J02.9 Acute pharyngitis, unspecified (principal)
CPT/HCPCS: 99283; J7512

== ENCOUNTER 2024-11-29 05:43 | Emergency (ER) | payer SELFPAY ==
--- OUTSIDE RECORDS SUMMARY | 2024-11-29 05:48 | XMS REPORT | Continuity of Care Document ---
Author Name Unknown Address [address] [facility] [address] [place] [address] [facility] Address [address] [facility] [address] [place] [address] Care Team Providers Care Soap Inspector Name Role Phone Gladis Newsome Primary Care Physician Griselda Feliciano Attending Clinician [phone] [facility]io [facility] Attending Clinician + Doctor Unassigned, [facility] Attending Clinician U navailGriselda Rene Attending Clinician Unava ilGRISELDA Esparza Attending Clinician Unavailab ARLENE Lopez Attending Clinician Unavail able Woo Ellis MD Attending Clinician [phone] WOO ELLIS Attending Clinician UnavailRoberto Ellsworth DO Attending Clinician [phone] Jose Manuel Esteban DO Attending Clinician [phone] Ruben MARINO, Soraya Attending Clinician Sowmya vailable Ultrasound, [facility] Attending Clinician UnavailGeronimo Floyd MD Attending Clinician [phone] GERONIMO RICO Attending Clinician Unavailable Terese Quiroz Attending Clinician Unavailabl e LISA ESPINOZA Attending Clinician Unavailabl e Lab, [facility] Attending Clinician Unavailable Brandon Gayle MD Attending Clinician [phone] BRANDON GAYLE Attending Clinician Unavailable Enmanuel DIRECTOR EXPERIMENTAL MEDICINE, Lisa Rangel Attending Clinician [phone] Lab, [facility] Attending Clinician Unavailable Juancarlos Merida MD Attending Clinician + JUANCARLOS MERIDA Attending Clinician Unav ailable 1, [facility] Us Room Attending Clinician Unavailab ana maria Ellis MD, Woo Garcia Admitting Clinician [phone] WOO ELLIS Admitting Clinician Unavailabl e Payers Payer Name Policy Type Policy Number Effective Date Expirati on Date Source Problems Condition Name Condition Details Condition Category Status Onset Date Resolution Date Last Treatment Date Treating Clinician Comments Source BMI 40.0-44.9, adult BMI 40.0-44.9, adult Disease Active 11-18 00:00: 00 [facility] Screen for STD (sexually transmitte d disease) Screen for STD (sexually transmitte d disease) Disease Active 10-28 00:00: 00 [facility] Dysuria Dysuria Disease Active 10-06 00:00: 00 [facility] Class 3 severe obesity due to excess calories with body mass index (BMI) of 40.0 to 44.9 in adult, unspecifie d whether serious comorbidit y present Class 3 severe obesity due to excess calories with body mass index (BMI) of 40.0 to 44.9 in adult, unspecifie d whether serious comorbidit y present Disease Active 2020-04 00:00: 00 [facility] Obesity (BMI 30-39.9) Obesity (BMI 30-39.9) Disease Active 10-27 00:00: 00 [facility] History of depression History of depression Disease Active 2016-04 00:00: 00 [facility] (normal spontaneou s vaginal delivery) (normal spontaneou s vaginal delivery) Disease Resolve d 2021-0 6-17 00:00: 00 2021-10-28 00:00:00 2021-10-28 10:28:28 [facility] Single live Single live Disease Resolve d 2021-0 6-17 00:00: 00 2021-10-28 00:00:00 2021-10-28 10:28:27 [facility] 39 weeks gestation of 39 weeks gestation of Disease Resolve d 2021-0 6-16 00:00: 00 2021-10-28 00:00:00 2021-10-28 10:28:33 [facility] Labor and delivery indication for care or interventi on Labor and delivery indication for care or interventi on Disease Resolve d 2021-0 6-16 00:00: 00 2021-10-28 00:00:00 2021-10-28 10:28:32 [facility] Encounter for elective induction of labor Encounter for elective induction of labor Disease Resolve d 2021-0 6-16 00:00: 00 2021-10-28 00:00:00 2021-10-28 10:28:30 [facility] Abnormal first trimester screen, LOW RISK NIPT Abnormal first trimester screen, LOW RISK NIPT Disease Resolve d 1 2-16 00:00: 00 2021-10-28 00:00:00 2021-10-28 10:28:35 [facility] Multiparit y Multiparit y Disease Resolve d 1 2-10 00:00: 00 2021-10-28 00:00:00 2021-10-28 10:28:36 [facility] Rh negative state in antepartum period Rh negative state in antepartum period Disease Resolve d 2020-04 1-12 00:00: 00 2021-10-28 00:00:00 2021-10-28 10:28:40 [facility] Supervisio n of high risk in first trimester Supervisio n of high risk in first trimester Disease Resolve d 2020-04 1-12 00:00: 00 2021-10-28 00:00:00 2021-10-28 10:28:38 [facility] Supervisio n of high risk in second trimester Supervisio n of high risk in second trimester Disease Resolve d 1-22 00:00: 00 2021-10-28 00:00:00 2021-10-28 10:29:01 [facility] Nausea and vomiting during Nausea and vomiting during Disease Resolve d 2016-04 1 00:00: 00 2021-10-28 00:00:00 2021-10-28 10:29:04 [facility] Contracept ion management Contracept ion management Disease Resolve d 12-14 00:00: 00 2021-02-27 00:00:00 2021-02-27 13:44:41 [facility] Routine follow-up Routine follow-up Disease Resolve d 11-18 00:00: 00 2017-12-14 00:00:00 2017-12-14 14:05:47 [facility] Single live Single live Disease Resolve d 7-14 00:00: 00 2017-11-18 00:00:00 2017-11-18 10:51:21 [facility] Normal spontaneou s vaginal delivery Normal spontaneou s vaginal delivery Disease Resolve d 13 00:00: 00 2017-11-18 00:00:00 2017-11-18 10:51:20 [facility] 39 weeks gestation of 39 weeks gestation of Disease Resolve d 7-12 00:00: 00 2017-11-18 00:00:00 2017-11-18 10:51:12 [facility] Labor and delivery, indication for care Labor and delivery, indication for care Disease Resolve d 0 7-12 00:00: 00 2017-11-18 00:00:00 2017-11-18 10:51:15 [facility] Supervisio n of high risk in third trimester Supervisio n of high risk in third trimester Disease Resolve d 5- 00:00: 00 2017-11-18 00:00:00 2017-11-18 10:51:10 [facility] Rh negative state in antepartum period Rh negative state in antepartum period Disease Resolve d 2016-04 00:00: 00 2017-11-18 00:00:00 2017-11-18 10:51:08 [facility] Chlamydia Chlamydia Disease Resolve d 2016-04 00:00: 00 2017-11-18 00:00:00 2017-11-18 10:51:09 [facility] Obesity in Obesity in Disease Resolve d 2016-04 00:00: 00 2017-11-18 00:00:00 2017-11-18 10:51:18 [facility] Umbilical abnormalit y Umbilical abnormalit y Disease Resolve d 09-27 00:00: 00 2017-10-28 00:00:00 2017-10-28 19:23:32 [facility] Need for Tdap vaccinatio n Need for Tdap vaccinatio n Disease Resolve d 08-16 00:00: 00 2017-09-27 00:00:00 2017-09-27 09:09:04 [facility] Missed menses Missed menses Disease Resolve d 2016-04 00:00: 00 2017-09-27 00:00:00 2017-09-27 09:09:09 [facility] Supervisio n of high risk , antepartum , first trimester Supervisio n of high risk , antepartum , first trimester Disease Resolve d 2016-04 00:00: 00 2017-05-09 00:00:00 2017-05-09 08:22:50 [facility] Allergies, Adverse Reactions, Alerts Allergy Name Allergy Type Status Severity Reaction(s) Onset Date Inactive Date Treating Clinician Comments Source NO KNOWN ALLERGIE S Drug Class Active [facility] Social History Social Habit Start Date Stop Date Quantity Comments Source [facility] Exposure to SARS-CoV-2 (event) 2021-11-23 00:00:00 2021-12-03 14:18:00 Not sure [facility] Alcohol intake 2021-02-27 00:00:00 2021-02-27 00:00:00 Current non-drinker of alcohol (finding) [facility] History of Social function 2018-10-26 00:00:00 2018-10-26 00:00:00 [facility] Alcoholic beverage intake 2017-05-09 00:00:00 2017-05-09 00:00:00 Current non-drinker of alcohol (finding) [facility] Tobacco use and exposure 2017-03-14 00:00:00 2017-03-14 00:00:00 Smokeless tobacco non-user [facility] Sex assigned at 1995 00:00:00 1995 00:00:00 [facility] Smoking Status Start Date Stop Date Source Never smoked tobacco [facility] Medications Ordered Medication Name Filled Medication Name Start Date Stop Date Current Medication? Ordering Clinician Indication Dosage Frequency Signature (SIG) Comments Components Source TAKE ONE (1) TABLET(S) BY MOUTH ONCE A DAY. 1-06 00:00: 00 Yes William Pierce TAKE TWO (2) TABLET(S) BY MOUTH ONCE A DAY. 1-05 00:00: 00 Yes William Pierce TAKE 1 TABLET BY MOUTH 4 TIMES DAILY NEEDED FOR ANXIETY 01-10 00:00: 00 Yes William Pierce TAKE 1 TABLET BY MOUTH ONCE DAILY 0 -25 00:00: 00 Yes William Pierce TAKE 1 TABLET BY MOUTH EVERY 12 HOURS 0 8-18 00:00: 00 Yes William Pierce AMOXICILLIN -CLAVULANAT E POTASS 875 MG-125 MG 6-04 00:00: 00 Yes William Pierce AMOXICILLIN 875 MG 0 4-24 00:00: 00 Yes William Pierce CETIRIZINE HCL 10 MG 0 4-15 00:00: 00 Yes William Pierce PREDNISONE 20 MG 0 4-15 00:00: 00 Yes William Pierce FAMOTIDINE 20 MG 0 4-15 00:00: 00 Yes William Pierce norethindro ne 0.35 mg tablet 12-03 00:00: 00 Yes [id number] 1{tbl} Take 1 tablet by mouth in the morning. [facility] vit calc,iron,f olic ( VITAMIN ORAL) 10-03 08:26: 33 10-03 00:00 :00 No Take by mouth. [facility] vitamin w/FA tablet 10-03 00:00: 00 Yes [id number] 1{tbl} Take 1 tablet by mouth daily. [facility] docusate 100 mg capsule 10-03 00:00: 00 Yes [id number] 200mg Take 2 capsules by mouth once daily as needed for Constipati on. [facility] ibuprofen 600 mg tablet 10-03 00:00: 00 Yes [id number] 600mg Take 1 tablet by mouth every 6 (six) hours as needed (Pain). Take with food or milk. [facility] ferrous sulfate 325 mg (65 mg iron) tablet 10-03 00:00: 00 Yes [id number] 325mg Take 1 tablet by mouth 2 (two) times daily. [facility] vitamin w/FA tablet 10-03 00:00: 00 Yes [id number] 1{tbl} Take 1 tablet by mouth daily. [facility] proMETHazin e 25 mg tablet 2020-04 00:00: 00 10-03 00:00 :00 No [id number] 25mg Take 1 tablet by mouth every 4 (four) hours as needed for Nausea and Vomiting (N/V). [facility] PNV 67-iron ps-folate no.1-dha (VITAFOL ULTRA) 29 mg iron- 1 mg-200 mg Cap 2020-04 00:00: 00 10-03 00:00 :00 No [id number] 1{capsu le} Take 1 capsule by mouth daily. [facility] doxylamine- pyridoxine, vit B6, (DICLEGIS) 10-10 mg per tablet 05-13 00:00: 00 2018- 07-14 00:00 :00 No [id number] 2{tbl} Take 2 tablets by mouth at bedtime. [facility] vit 33-iron-fol ic-dha (SELECT-OB + DHA) 29 mg iron-1 mg -250 mg combo pack 2016-04 00:00: 00 12-14 00:00 :00 No [id number] 1{packe t} Take 1 Packet by mouth daily. [facility] doxylamine- pyridoxine, vit B6, (DICLEGIS) 10-10 mg per tablet 2016-04 00:00: 00 05-12 00:00 :00 No [id number] 2{tbl} Take 2 tablets by mouth at bedtime. [facility] loratadine 10 mg tablet 10-05 00:00: 00 Yes 1mg Wililam Pierce penicillin V potassium 250 mg tablet 10-05 00:00: 00 Yes 2mg William Pierce prednisone 20 mg tablet 10-05 00:00: 00 Yes 1mg William Pierce benzonatate 100 mg capsule 10-05 00:00: 00 Yes 1mg William Pierce Augmentin 875 mg-125 mg tablet 06-03 00:00: 00 Yes 1mg William Pierce Immunizations Ordered Immunization Name Filled Immunization Name Date Status Comments Source Rho (d) Immune Globulin 2021-10-02 00:00:00 Completed [facility] Rho (d) Immune Globulin 2021-10-02 00:00:00 Completed [facility] Rho (d) Immune Globulin 2021-10-02 00:00:00 Completed [facility] TDAP 2021-07-22 00:00:00 Completed [facility] Rho (d) Immune Globulin 2021-07-22 00:00:00 Completed [facility] TDAP 2021-07-22 00:00:00 Completed [facility] Rho (d) Immune Globulin 2021-07-22 00:00:00 Completed [facility] TDAP 2021-07-22 00:00:00 Completed [facility] Rho (d) Immune Globulin 2021-07-22 00:00:00 Completed [facility] HPV9 2017-12-05 00:00:00 Completed [facility] HPV9 2017-12-05 00:00:00 Completed [facility] HPV9 2017-12-05 00:00:00 Completed [facility] HPV9 2017-10-29 00:00:00 Completed [facility] HPV9 2017-10-29 00:00:00 Completed [facility] HPV9 2017-10-29 00:00:00 Completed [facility] Rho (d) Immune Globulin 2017-10-28 00:00:00 Completed [facility] Rho (d) Immune Globulin 2017-10-28 00:00:00 Completed [facility] Rho (d) Immune Globulin 2017-10-28 00:00:00 Completed [facility] TDAP 2017-08-16 00:00:00 Completed [facility] Rho (d) Immune Globulin 2017-08-16 00:00:00 Completed [facility] TDAP 2017-08-16 00:00:00 Completed [facility] Rho (d) Immune Globulin 2017-08-16 00:00:00 Completed [facility] TDAP 2017-08-16 00:00:00 Completed [facility] Rho (d) Immune Globulin 2017-08-16 00:00:00 Completed [facility] Influenza Virus Vaccine - Whole 2017-02-16 00:00:00 Completed [facility] Influenza Virus Vaccine - Whole 2017-02-16 00:00:00 Completed [facility] Influenza Virus Vaccine - Whole 2017-02-16 00:00:00 Completed [facility] Influenza Virus Vaccine - Whole 2017-02-16 00:00:00 Completed Influenza Virus Vaccine - Whole Unknown Completed [facility] TDAP Unknown Completed [facility] Rho (d) Immune Globulin Unknown Completed [facility] Rho (d) Immune Globulin Unknown Completed [facility] HPV9 Unknown Completed [facility] Rho (d) Immune Globulin Unknown Completed [facility] Influenza Virus Vaccine - Whole Unknown Completed [facility] TDAP Unknown Completed [facility] Rho (d) Immune Globulin Unknown Completed [facility] Rho (d) Immune Globulin Unknown Completed [facility] HPV9 Unknown Completed [facility] Rho (d) Immune Globulin Unknown Completed [facility] Influenza Virus Vaccine - Whole Unknown Completed [facility] TDAP Unknown Completed [facility] Rho (d) Immune Globulin Unknown Completed [facility] Rho (d) Immune Globulin Unknown Completed [facility] HPV9 Unknown Completed [facility] Rho (d) Immune Globulin Unknown Completed [facility] Influenza Virus Vaccine - Whole Unknown Completed [facility] TDAP Unknown Completed [facility] Rho (d) Immune Globulin Unknown Completed [facility] Rho (d) Immune Globulin Unknown Completed [facility] HPV9 Unknown Completed [facility] Rho (d) Immune Globulin Unknown Completed [facility] Influenza Virus Vaccine - Whole Unknown Completed [facility] TDAP Unknown Completed [facility] Rho (d) Immune Globulin Unknown Completed [facility] Rho (d) Immune Globulin Unknown Completed [facility] HPV9 Unknown Completed [facility] Rho (d) Immune Globulin Unknown Completed [facility] Influenza Virus Vaccine - Whole Unknown Completed [facility] TDAP Unknown Completed [facility] Rho (d) Immune Globulin Unknown Completed [facility] Rho (d) Immune Globulin Unknown Completed [facility] HPV9 Unknown Completed [facility] Rho (d) Immune Globulin Unknown Completed [facility] Influenza Virus Vaccine - Whole Unknown Completed [facility] TDAP Unknown Completed [facility] Rho (d) Immune Globulin Unknown Completed [facility] Rho (d) Immune Globulin Unknown Completed [facility] HPV9 Unknown Completed [facility] Rho (d) Immune Globulin Unknown Completed [facility] Influenza Virus Vaccine - Whole Unknown Completed [facility] TDAP Unknown Completed [facility] Rho (d) Immune Globulin Unknown Completed [facility] Rho (d) Immune Globulin Unknown Completed [facility] HPV9 Unknown Completed [facility] Rho (d) Immune Globulin Unknown Completed [facility] Influenza Virus Vaccine - Whole Unknown Completed [facility] TDAP Unknown Completed [facility] Rho (d) Immune Globulin Unknown Completed [facility] Rho (d) Immune Globulin Unknown Completed [facility] HPV9 Unknown Completed [facility] Rho (d) Immune Globulin Unknown Completed [facility] Influenza Virus Vaccine - Whole Unknown Completed [facility] TDAP Unknown Completed [facility] Rho (d) Immune Globulin Unknown Completed [facility] Rho (d) Immune Globulin Unknown Completed [facility] HPV9 Unknown Completed [facility] Influenza Virus Vaccine - Whole Unknown Completed [facility] TDAP Unknown Completed [facility] Rho (d) Immune Globulin Unknown Completed [facility] Rho (d) Immune Globulin Unknown Completed [facility] HPV9 Unknown Completed [facility] Influenza Virus Vaccine - Whole Unknown Completed [facility] TDAP Unknown Completed [facility] Rho (d) Immune Globulin Unknown Completed [facility] Rho (d) Immune Globulin Unknown Completed [facility] HPV9 Unknown Completed [facility] Influenza Virus Vaccine - Whole Unknown Completed [facility] TDAP Unknown Completed [facility] Rho (d) Immune Globulin Unknown Completed [facility] Rho (d) Immune Globulin Unknown Completed [facility] HPV9 Unknown Completed [facility] Influenza Virus Vaccine - Whole Unknown Completed [facility] TDAP Unknown Completed [facility] Rho (d) Immune Globulin Unknown Completed [facility] Rho (d) Immune Globulin Unknown Completed [facility] HPV9 Unknown Completed [facility] Influenza Virus Vaccine - Whole Unknown Completed [facility] TDAP Unknown Completed [facility] Rho (d) Immune Globulin Unknown Completed [facility] Rho (d) Immune Globulin Unknown Completed [facility] HPV9 Unknown Completed [facility] Vital Signs Vital Name Observation Time Observation Value Comments S ource Systolic blood pressure 2021-12-03 19:19:00 129 mm[Hg] [facility] Diastolic blood pressure 2021-12-03 19:19:00 68 mm[Hg] [facility] Heart rate 2021-12-03 19:19:00 76 /min [facility] Body temperature 2021-12-03 19:19:00 36.89 Tiffanie [facility] Respiratory rate 2021-12-03 19:19:00 18 /min [facility] Body weight 2021-12-03 19:19:00 120.884 kg [facility] BMI 2021-12-03 19:19:00 40.52 kg/m2 [facility] Respiratory Rate 2024-08-15 17:05:00 18.00 /min William F Stan BP Systolic 2024-08-15 17:05:00 140 mm[Hg] Step hen F Stan BP Diastolic 2024-08-15 17:05:00 67 mm[Hg] Dex phen F Stan Weight Measured 2024-08-15 17:05:00 280.00 pounds William F Stan Height Measured 2024-08-15 17:05:00 68.00 inches William F Stan Body Temperature 2024-08-15 17:05:00 97.50 degrees William F Stan Heart Rate 2024-08-15 17:05:00 60.00 /min Kiley en F Stan BP Systolic 2016-10-05 13:33:00 104 mm[Hg] Step hen F Stan BP Diastolic 2016-10-05 13:33:00 72 mm[Hg] Dex phen F Stan Weight Measured 2016-10-05 13:33:00 236.40 pounds William F Stan Height Measured 2016-10-05 13:33:00 68.00 inches William F Stan Body Temperature 2016-10-05 13:33:00 98.20 degrees William F Stan Heart Rate 2016-10-05 13:33:00 98.00 /min Kiley en F Stan Respiratory Rate 2016-10-05 13:33:00 15.00 /min William F Stan BP Systolic 2016-09-10 11:01:00 147 mm[Hg] Step hen F Stan BP Diastolic 2016-09-10 11:01:00 87 mm[Hg] Dex phen F Stan Weight Measured 2016-09-10 11:01:00 243.00 pounds William F Stan Height Measured 2016-09-10 11:01:00 68.00 inches William F Stan Body Temperature 2016-09-10 11:01:00 97.90 degrees William F Stan Heart Rate 2016-09-10 11:01:00 87.00 /min Kiley en F Stan Respiratory Rate 2016-09-10 11:01:00 16.00 /min William F Stan BP Systolic 2016-06-08 13:19:00 121 mm[Hg] Step hen F Stan BP Diastolic 2016-06-08 13:19:00 82 mm[Hg] Dex phen F Stan Weight Measured 2016-06-08 13:19:00 248.20 pounds William F Stan Height Measured 2016-06-08 13:19:00 68.00 inches William F Stan Body Temperature 2016-06-08 13:19:00 98.10 degrees William F Stan Heart Rate 2016-06-08 13:19:00 84.00 /min Kiley en F Stan Respiratory Rate 2016-06-08 13:19:00 16.00 /min William F Stan BP Systolic 2016-06-03 15:58:00 127 mm[Hg] Step hen F Stan BP Diastolic 2016-06-03 15:58:00 83 mm[Hg] Dex phen F Stan Weight Measured 2016-06-03 15:58:00 247.60 pounds William F Stan Height Measured 2016-06-03 15:58:00 68.00 inches William F Stan Body Temperature 2016-06-03 15:58:00 98.30 degrees William F Stan Heart Rate 2016-06-03 15:58:00 83.00 /min Kiley en F Stan Respiratory Rate 2016-06-03 15:58:00 15.00 /min William F Stan BP Systolic 2016-05-06 15:54:00 123 mm[Hg] Step hen F Stan BP Diastolic 2016-05-06 15:54:00 81 mm[Hg] Dex phen F Stan Weight Measured 2016-05-06 15:54:00 240.40 pounds William F Stan Height Measured 2016-05-06 15:54:00 68.00 inches William F Stan Body Temperature 2016-05-06 15:54:00 97.70 degrees William F Stan Heart Rate 2016-05-06 15:54:00 78.00 /min Kiley en F Stan Respiratory Rate 2016-05-06 15:54:00 15.00 /min William F Stan Procedures Procedure Date / Time Performed Performing Clinicia n Source POCT TEST 2021-12-03 19:22:00 Eliana Duarte [facility] Encounters Start Date/Time End Date/Time Encounter Type Admission Type Attending [facility] Care Department Encounter ID Source 2024-08-27 16:19:34 2024-08-27 16:19:34 Outpatient [facility] [id number] William Pierce 2024-08-21 16:52:34 2024-08-21 16:52:34 Outpatient [facility] [id number] William Pierce 2024-08-15 16:56:19 2024-08-15 16:56:19 Outpatient [facility] [id number] William Pierce 2024-08-15 00:00:00 2024-08-15 00:00:00 Outpatient Visit [facility] [id number] William Pierce 2017-05-12 00:00:00 2024-08-09 22:25:23 Refill Griselda Duarte [facility] HEAD CHAR FILTER TANK TENDER [facility] & CHILD [facility] 1..114 [id number] [facility] 2022-06-29 00:00:00 2022-06-29 00:00:00 Telephone Arlene Kaplan [facility] HEAD CHAR FILTER TANK TENDER [facility] & CHILD [facility] 1..114 [id number] [facility] 2022-03-08 14:00:00 2022-03-08 14:00:00 Outpatient R [facility] [id number] [facility] 2022-01-11 00:00:00 2022-01-11 00:00:00 Refill Arlene Kaplan [facility] HEAD CHAR FILTER TANK TENDER [facility] CHILD [facility] 1..[address] [id number] [facility] 2022-01-11 00:00:00 2022-01-11 00:00:00 Patient Secure Msg Doctor Unassigned, [facility] ..114 350.1.13.10 4.2.7.2.[id number] [facility] 2021-12-25 00:00:00 2021-12-25 00:00:00 Patient Secure Msg Griselda Duarte [facility] HEAD CHAR FILTER TANK TENDER [facility] & CHILD [facility] 1..840.114 350.1.13.10 4.2.7.2.[id number] [facility] 2021-12-03 14:30:00 2021-12-03 14:32:18 Outpatient R JOSIE DUARTEASIAOBISean [facility] [id number] [facility] 2021-12-03 14:30:00 2021-12-03 14:32:18 Office Visit Josie Duarteterri [facility] HEAD CHAR FILTER TANK TENDER [facility] CHILD [facility] 1..840.114 350.1.13.10 4.2.7.2.[id number] [facility] 2021-12-03 14:30:00 2021-12-03 14:30:00 Outpatient R JOSIE DUARTETERRI [facility] [id number] [facility] 2021-11-18 09:45:00 2021-11-18 10:31:04 Outpatient R JOSIE DUARTEASIAWILBER [facility] [id number] [facility] 2021-11-18 09:45:00 2021-11-18 10:31:04 Office Visit Josie Duarteasiaobisean [facility] HEAD CHAR FILTER TANK TENDER [facility] CHILD [facility] 1..840.114 350.1.13.10 4.2.7.2.[id number] [facility] 2021-11-18 09:45:00 2021-11-18 09:45:00 Outpatient JOSIE GASPARASIAWILBER [facility] [id number] [facility] 2021-11-10 00:00:00 2021-11-10 00:00:00 Patient Secure Msg Doctor Unassigned, [facility] HEAD CHAR FILTER TANK TENDER [facility] & CHILD [facility] 1.2.840.114 350.1.13.10 4.2.7.2.[id number] [facility] 2021-10-28 09:45:00 2021-10-28 10:29:10 Outpatient R ARLENE KAPLAN [facility] [id number] [facility] 2021-10-28 09:45:00 2021-10-28 10:29:10 Routine Visit Arlene Kaplan [facility] HEAD CHAR FILTER TANK TENDER [facility] & CHILD [facility] 1.2.840.114 350.1.13.10 4.2.7.2.[id number] [facility] 2021-10-07 00:00:00 2021-10-07 00:00:00 Telephone Griselda Duarte [facility] HEAD CHAR FILTER TANK TENDER [facility] CHILD [facility] 1.2840.114 350.1.13.10 4.2.7.2.[id number] [facility] 2021-10-07 00:00:00 2021-10-07 00:00:00 Patient Secure Msg Doctor Unassigned, [facility] HEAD CHAR FILTER TANK TENDER [facility] & CHILD [facility] 1.2.840.114 350.1.13.10 4.2.7.2.[id number] [facility] 2021-10-06 15:30:00 2021-10-06 15:30:00 Routine Visit Griselda Duarte [facility] HEAD CHAR FILTER TANK TENDER [facility] & CHILD [facility] 1.2.840.114 350.1.13.10 4.2.7.2.[id number] [facility] 2021-10-06 15:30:00 2021-10-06 13:34:00 Outpatient R GRISELDA DUARTE [facility] [id number] [facility] 2021-10-06 00:00:00 2021-10-06 00:00:00 Telephone Griselda Duarte [facility] HEAD CHAR FILTER TANK TENDER [facility] & CHILD [facility] 1.2.840.114 350.1.13.10 4.2.7.2.[id number] [facility] 2021-10-01 20:26:00 2021-10-03 13:00:00 Hospital Encounter Woo Ellis [facility] 1.2.840.114 350.1.13.10 4.2.7.2.[id number] [facility] 2021-10-01 20:26:00 2021-10-03 13:00:00 Inpatient P WOO ELLIS [facility] VICTOR M [id number] [facility] 2021-10-02 20:01:15 2021-10-02 20:01:15 Anesthesia Event [facility] 1.2.840.114 350.1.13.10 4.2.7.2.[id number] [facility] 2021-10-01 23:15:00 2021-10-02 06:53:00 Anesthesia Event [place] Roberto Carlito Count includes the [facility] 1.2.840.114 350.1.13.10 4.2.7.2.[id number] [facility] 2021-09-28 15:15:00 2021-09-28 15:15:00 Outpatient GIRSELDA GASPAR [facility] [id number] [facility] 2021-09-21 16:45:00 2021-09-21 17:19:44 Outpatient GRISELDA GASPAR [facility] [id number] [facility] 2021-09-21 16:45:00 2021-09-21 17:00:00 Routine Visit Griselda Duarte [facility] HEAD CHAR FILTER TANK TENDER [facility] 1.2.840.114 350.1.13.10 4.2.7.2.[id number] [facility] 2021-09-21 16:45:00 2021-09-21 16:45:00 Outpatient GRISELDA GASPAR [facility] [id number] [facility] 2021-09-15 15:45:00 2021-09-15 15:45:00 [id number] 2021-09-15 00:00:00 2021-09-15 00:00:00 Orders Only Doctor Unassigned, [facility] 1.2840.114 350.1.13.10 4.2.7.2.[id number] [facility] 2021-09-10 00:00:00 2021-09-10 00:00:00 [facility] 1.2840.114 350.1.13.10 4.2.7.2.[id number] [facility] 2021-09-07 00:00:00 2021-09-07 00:00:00 [facility] TEND[facility] 1.2840.114 350.1.13.10 4.2.7.2.[id number] [facility] 2021-09-07 00:00:00 2021-09-07 00:00:00 Orders Only Doctor Unassigned, [facility] 1.2840.114 350.1.13.10 4.2.7.2.[id number] [facility] 2021-09-04 00:00:00 2021-09-04 00:00:00 Patient Secure Msg Soraya Miranda [facility] HEAD CHAR FILTER TANK TENDER [facility] & CHILD [facility] 1.840.114 350.1.13.10 4.2.7.2.[id number] [facility] 2021-08-31 17:45:00 2021-08-31 18:13:35 Outpatient GRISELDA GASPAR [facility] [id number] [facility] 2021-08-31 17:45:00 2021-08-31 18:13:35 Routine Visit Griselda Duarte [facility] HEAD CHAR FILTER TANK TENDER [facility] & CHILD [facility] 1.0.114 350.1.13.10 4.2.7.2.[id number] [facility] 2021-08-31 13:45:00 2021-08-31 13:45:00 Outpatient GRISELDA GASPAR [facility] [id number] [facility] 2021-08-31 11:00:00 2021-08-31 11:00:00 Outpatient R GRISELDA DUARTE [facility] [id number] [facility] 2021-08-19 00:00:00 2021-08-19 00:00:00 Patient Secure Griselda Barreto [facility] HEAD CHAR FILTER TANK TENDER [facility] MAT[facility] & CHILD [facility] 1..114 350.1.13.10 4.2.7.2.[id number] [facility] 2021-08-17 17:30:00 2021-08-17 17:54:45 Outpatient GRISELDA GASPAR [facility] [id number] [facility] 2021-08-17 17:30:00 2021-08-17 17:54:45 Routine Visit Griselda Duarte [facility] HEAD CHAR FILTER TANK TENDER [facility] & CHILD [facility] 1.840.114 350.1.13.10 4.2.7.2.[id number] [facility] 2021-08-17 00:00:00 2021-08-17 00:00:00 Patient Secure Griselda Barreto [facility] HEAD CHAR FILTER TANK TENDER [facility] & CHILD [facility] 1.2.840.114 350.1.13.10 4.2.7.2.[id number] [facility] 2021-08-17 00:00:00 2021-08-17 00:00:00 Case Management Griselda Duarte [facility] HEAD CHAR FILTER TANK TENDER [facility] CHILD [facility] 1..840.114 350.1.13.10 4.2.7.2.[id number] [facility] 2021-08-06 08:00:00 2021-08-06 08:00:00 Outpatient JOSIE GASPARTERRI [facility] [id number] [facility] 2021-08-03 17:30:00 2021-08-03 17:39:22 Outpatient R JOSIE DUARTETERRI [facility] [id number] [facility] 2021-08-03 17:30:00 2021-08-03 17:39:22 Routine Visit Griselda Duarte [facility] HEAD CHAR FILTER TANK TENDER [facility] & CHILD [facility] ..840.114 350.1.13.10 4.2.7.2.[id number] [facility] 2021-07-23 00:00:00 2021-07-23 00:00:00 Patient Secure Griselda Barreto [facility] HEAD CHAR FILTER TANK TENDER [facility] & CHILD [facility] 1..840.114 350.1.13.10 4.2.7.2.[id number] [facility] 2021-07-22 07:45:00 2021-07-22 08:43:32 Outpatient R JOSIE DUARTETERRI [facility] [id number] [facility] 2021-07-22 07:45:00 2021-07-22 08:43:32 Routine Visit Griselda Duarte [facility] HEAD CHAR FILTER TANK TENDER [facility] & CHILD [facility] ..840.114 350.1.13.10 4.2.7.2.[id number] [facility] 2021-07-22 07:45:00 2021-07-22 07:45:00 Outpatient R DUARTEGRISELDA [facility] [id number] [facility] 2021-07-08 07:45:00 2021-07-08 08:21:42 Outpatient R GRISELDA DUARTE [facility] [id number] [facility] 2021-07-08 07:45:00 2021-07-08 08:21:42 Routine Visit Griselda Duarte [facility] HEAD CHAR FILTER TANK TENDER [facility] CHILD [facility] 1..840.114 350.1.13.10 4.2.7.2.[id number] [facility] 2021-06-23 07:45:00 2021-06-23 08:08:16 Outpatient R GRISELDA DUARTE [facility] [id number] [facility] 2021-06-23 07:45:00 2021-06-23 08:08:16 Routine Visit Griselda Duarte [facility] HEAD CHAR FILTER TANK TENDER [facility] & CHILD [facility] 1..840.114 350.1.13.10 4.2.7.2.[id number] [facility] 2021-05-26 08:45:00 2021-05-26 09:21:15 Outpatient R GRISELDA DUARTE [facility] [id number] [facility] 2021-05-26 08:45:00 2021-05-26 09:21:15 Routine Visit Griselda Duarte [facility] HEAD CHAR FILTER TANK TENDER [facility] & CHILD [facility] 1..840.114 350.1.13.10 4.2.7.2.[id number] [facility] 2021-05-26 08:45:00 2021-05-26 08:45:00 Outpatient R GRISELDA DUARTE [facility] [id number] [facility] 2021-05-22 00:00:00 2021-05-22 00:00:00 Abstract Arlene Kaplan [facility] HEAD CHAR FILTER TANK TENDER [facility] MATERNAL & CHILD [facility] 1..840.114 350.1.13.10 4.2.7.2.[id number] 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 2021-05-21 10:00:00 2021-05-21 10:00:00 Outpatient P [facility] [id number] [facility] 2021-05-21 10:00:00 2021-05-21 10:00:00 Outpatient P GERONIMO RICO [facility] [id number] [facility] 2021-04-29 00:00:00 2021-04-29 00:00:00 Telephone Griselda Duarte [facility] HEAD CHAR FILTER TANK TENDER [facility] & CHILD [facility] ..840.114 350.1.13.10 4.2.7.2.[id number] [facility] 2021-04-28 08:45:00 2021-04-28 09:45:10 Outpatient R GRISELDA DUARTE [facility] [id number] [facility] 2021-04-28 08:45:00 2021-04-28 09:45:10 Routine Visit Griselda Duarte [facility] HEAD CHAR FILTER TANK TENDER [facility] MATERNAL & CHILD [facility] 1..114 350.1.13.10 4.2.7.2.[id number] [facility] 2021-04-27 00:00:00 2021-04-27 00:00:00 Telephone Terese Quiroz [facility] [place] 1..114 350.1.13.10 4.2.7.2.[id number] [facility] 2021-04-24 10:45:00 2021-04-24 10:45:00 Outpatient LISA CENTENO [facility] [id number] [facility] 2021-04-17 13:30:00 2021-04-17 13:30:00 [facility] HEAD CHAR FILTER TANK TENDER [facility] & CHILD [facility] 1..114 350.1.13.10 4.2.7.2.[id number] [facility] 2021-04-17 09:00:00 2021-04-17 09:36:13 Outpatient BRANDON NOLAN [facility] [id number] [facility] 2021-04-17 09:00:00 2021-04-17 09:36:13 Telemedici ne Visit Terese Quiroz Joseph W [facility] HEAD CHAR FILTER TANK TENDER [facility] & CHILD [facility] 1..114 350.1.13.10 4.2.7.2.[id number] [facility] 2021-04-17 09:00:00 2021-04-17 09:00:00 Outpatient P [facility] [id number] [facility] 2021-04-17 00:00:00 2021-04-17 00:00:00 Orders Only Doctor Unassigned, [facility] 1..114 350.1.13.10 4.2.7.2.[id number] [facility] 2021-04-14 00:00:00 2021-04-14 00:00:00 Telephone Lisa Espinoza [facility] HEAD CHAR FILTER TANK TENDER [facility] & CHILD [facility] 1.2.840.114 350.1.13.10 4.2.7.2.[id number] [facility] 2021-04-02 00:00:00 2021-04-02 00:00:00 Patient Secure Msg Lisa Espinoza [facility] HEAD CHAR FILTER TANK TENDER [facility] & CHILD [facility] 1.2840.114 350.1.13.10 4.2.7.2.[id number] [facility] 2021-04-02 00:00:00 2021-04-02 00:00:00 Telephone Lisa Espinoza [facility] HEAD CHAR FILTER TANK TENDER [facility] & CHILD [facility] 1.2840.114 350.1.13.10 4.2.7.2.[id number] 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 2021-04-01 11:00:00 2021-04-01 11:00:00 Outpatient R JUANCARLOS GARCIA [facility] [id number] [facility] 2021-04-01 10:15:00 2021-04-01 11:00:00 Energy Attorney Visit 1, [facility] Room Juancarlos Garcia [facility] HEAD CHAR FILTER TANK TENDER [facility] & CHILD [place] 1.2840.114 350.1.13.10 4.2.7.2.[id number] [facility] 2021-03-31 00:00:00 2021-03-31 00:00:00 Patient Secure Msconcepcion Lisa Espinoza [facility] HEAD CHAR FILTER TANK TENDER [facility] & CHILD [facility] 1.840.114 350.1.13.10 4.2.7.2.[id number] [facility] 2021-03-27 10:30:00 2021-03-27 10:58:54 Outpatient R LISA ESPINOZA [facility] [id number] [facility] 2021-03-27 10:25:21 2021-03-27 10:58:54 Routine Visit Lisa Espinoza [facility] HEAD CHAR FILTER TANK TENDER [facility] CHILD [facility] 1.840.114 350.1.13.10 4.2.7.2.[id number] [facility] 2021-03-27 10:30:00 2021-03-27 10:30:00 Outpatient R LISA ESPINOZA [facility] [id number] [facility] 2021-03-09 00:00:00 2021-03-09 00:00:00 Patient Secure Lisa Espinoza [facility] HEAD CHAR FILTER TANK TENDER [facility] CHILD [facility] .840.114 350.1.13.10 4.2.7.2.[id number] [facility] 2021-03-09 00:00:00 2021-03-09 00:00:00 Telephone Arlene Kaplan [facility] HEAD CHAR FILTER TANK TENDER [facility] & CHILD [facility] .840.114 350.1.13.10 4.2.7.2.[id number] [facility] 2021-03-09 00:00:00 2021-03-09 00:00:00 Telephone Lisa Espinoza [facility] HEAD CHAR FILTER TANK TENDER [facility] 1.2.84.114 350.1.13.10 4.2.7.2.[id number] [facility] 2021-03-09 00:00:00 2021-03-09 00:00:00 Orders Only Doctor Unassigned, [facility] 1..114 350.1.13.10 4.2.7.2.[id number] [facility] 2021-03-06 00:00:00 2021-03-06 00:00:00 Patient Secure Msg Doctor Unassigned, [facility] 1..114 350.1.13.10 4.2.7.2.[id number] [facility] 2021-03-05 00:00:00 2021-03-05 00:00:00 Patient Secure Msg Lisa Espinoza [facility] HEAD CHAR FILTER TANK TENDER [facility] CHILD [facility] 1.84.114 350.1.13.10 4.2.7.2.[id number] [facility] 2021-03-03 13:00:00 2021-03-03 13:00:00 Outpatient R [facility] [id number] [facility] 2021-03-02 10:30:00 2021-03-02 10:15:03 Outpatient R LISA ESPINOZA [facility] [id number] 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 2021-03-02 00:00:00 2021-03-02 00:00:00 Patient Secure Msg Lisa Espinoza [facility] HEAD CHAR FILTER TANK TENDER [facility] CHILD [facility] 1.2840.114 350.1.13.10 4.2.7.2.[id number] [facility] 2021-03-02 00:00:00 2021-03-02 00:00:00 Patient Secure Msg Lisa Espinoza [facility] HEAD CHAR FILTER TANK TENDER [facility] 1.2840.114 350.1.13.10 4.2.7.2.[id number] [facility] 2021-03-02 00:00:00 2021-03-02 00:00:00 Telephone Lisa Espinoza [facility] HEAD CHAR FILTER TANK TENDER [facility] 1.20.114 350.1.13.10 4.2.7.2.[id number] [facility] 2021-02-27 13:45:00 2021-02-27 14:56:40 Outpatient R LISA ESPINOZA [facility] [id number] [facility] 2021-02-27 13:41:41 2021-02-27 14:56:40 Initial Visit Lisa Espinoza [facility] 1.284.114 350.1.13.10 4.2.7.2.[id number] [facility] 2021-02-27 13:15:00 2021-02-27 13:15:00 Outpatient R LISA ESPINOZA [facility] [id number] [facility] 2021-02-27 00:00:00 2021-02-27 00:00:00 Orders Only Doctor Unassigned, [facility] 1.2.114 350.1.13.10 4.2.7.2.[id number] [facility] Results Test Description Test Time Test Comments Results Result Co mments Source William Rupesh StanPOCT [id number] 19:22:00* Test Item Value Reference Range Interpretation Comme nts POCT PREG (test code = 1605) Negative On board controls acceptable with C Line (test code = 3574) Yes POCT PREG LOT # (test code = 3575) POCT PREG TEST DATE ( test code = 3576) [facility] Notes Date/Time Note Provider Source William Noel [facility]2018-01-26 09:58:21 Message from [place]: Original authorizing provider: RAMONA Jacobs Radha would like a refill of the following medications: doxylamine-pyridoxine, vit B6, (DICLEGIS) 10-10 mg per tablet [RAMONA Jacobs] Preferred pharmacy: [facility] [address] [place] [address] [address] Delivery method: Pickup Preferred pick-up date and time: 05/12/2017 3:40 PM Comment: [facility]
--- NOTE | 2024-11-29 06:07 | EDPHYS ---
Physician Documentation [facility] Name: Sanya Kearney Age: 29 yrs Sex: Female : 1995 Arrival Date: 11/29/2024 Time: 05:43 Bed IW1 Private MD: ED Physician Shen Shannon HPI: 11/29 06:04 This 29 yrs old Female presents to ER via Ambulatory with complaints of Difficulty rn Swallowing, Sore Throat, Swollen Glands. 06:04 Patient reports having sore throat and swollen tonsils for 1 day. Has recurrent tonsil rn infections. Does not have insurance so has never seen ENT. States usually improves with antibiotics. No fever or chills. No shortness of breath.. Historical: - Allergies: 05:58 No Known Allergies; ha1 - PMHx: 05:58 None; ha1 - Immunization history:: Adult Immunizations up to date. - Infectious Disease History:: Denies. - Social history:: Smoking status: Patient denies any tobacco usage or history of. - Family history:: not pertinent. - Hospitalizations: : No recent hospitalization is reported. ROS: 06:04 Constitutional: Negative for fever, chills, and weight loss, ENT: Positive for sore rn throat and swollen tonsils Respiratory: Negative for shortness of breath, cough, wheezing, and pleuritic chest pain, Exam: 06:04 Constitutional: This is a well developed, well nourished patient who is awake, alert, rn and in no acute distress. ENT: Positive for tonsillar hypertrophy with exudate that is worse on the right. No stridor. Neck: Anterior cervical lymphadenopathy. No crepitus Respiratory: No increased work of breathing, no retractions or nasal flaring. Vital Signs: 05:50 BP 148 / 90; Pulse 91; Resp 17 S; Temp 98.6(O); Pulse Ox 100% on R/A; Weight 127.01 kg; ha1 Height 5 ft. 8 in. ; Pain 8/10; 05:50 Body Mass Index 42.57 (127.01 kg, 172.72 cm) ha1 05:50 Pain Scale: Adult ha1 MDM: 05:46 Medical Screening Exam initiated rn 06:04 Differential diagnosis: laryngitis, pharyngitis, tonsillitis. Data reviewed: vital rn signs, nurses notes, and as a result, I will discharge patient. Counseling: I had a detailed discussion with the patient and/or guardian regarding the historical points, exam findings, and any diagnostic results supporting the discharge/admit diagnosis, the need for outpatient follow up, to return to the emergency department if symptoms worsen or persist or if there are any questions or concerns that arise at home. Special discussion: I discussed with the patient/guardian in detail that at this point there is no indication for admission to the hospital. It is understood, however, that if the symptoms persist or worsen the patient needs to return immediately for re-evaluation. Administered Medications: 06:42 Drug: Amoxicillin-Clavulanate PO 875 mg PO once Route: PO; ha1 06:54 Follow up: Response: No adverse reaction ha1 Disposition Summary: 11/29/24 06:07 Discharge Ordered Notes: Location: Home rn Problem: new rn Symptoms: have improved rn Condition: Stable rn Diagnosis - Acute tonsillitis, unspecified rn Followup: rn - With: Thea Weems MD - When: As needed - Reason: Recheck today's complaints, Re-evaluation by your physician Discharge Instructions: - Discharge Summary Sheet rn - Tonsillitis rn Forms: - Medication Reconciliation Form rn - Antibiotic cad intern - Prescription Opioid Use rn - Patient Portal Instructions rn - Leadership Thank You Letter rn - Work release form 1 Prescriptions: - Augmentin 875-125 mg Oral Tablet - take 1 tablet ORAL route every 12 hours for 10 days; 20 tablet; Refills: 0, rn Product Selection Permitted Signatures: Shen Shannon MD MD rn Ayala, Heidy, RN RN [facility]
--- NOTE | 2024-11-29 06:07 | ER ---
Nurse's Notes [facility] Name: Sanya Kearney Age: 29 yrs Sex: Female : 1995 Arrival Date: 11/29/2024 Time: 05:43 Bed IW1 Private MD: Diagnosis: Acute tonsillitis, unspecified Presentation: 11/29 05:50 Chief complaint: Patient states: swollen tonsils, sore throat. has had seven episodes ha1 in one year. 05:50 Coronavirus screen: Client denies travel out of the [place] in the last 14 days. Ebola ha1 Screen: No symptoms or risks identified at this time. Initial Sepsis Screen: Does the patient meet any 2 criteria? No. Patient's initial sepsis screen is negative. Does the patient have a suspected source of infection? No. Patient's initial sepsis screen is negative. Risk Assessment: Do you want to hurt yourself or someone else? Patient reports no desire to harm self or others. Onset of symptoms was November 29, 2024. 05:50 Method Of Arrival: Ambulatory ha1 05:50 Acuity: GILL 5 ha1 Triage Assessment: 05:58 General: Appears comfortable, Behavior is calm, cooperative. Pain: Complains of pain in ha1 sore throat Pain currently is 8 out of 10 on a pain scale. Quality of pain is described as aching. EENT: Throat is reddened has enlarged tonsils on right. Neuro: Level of Consciousness is awake, alert, obeys commands, Oriented to person, place, time, situation. Cardiovascular: Patient's skin is warm and dry. Respiratory: Airway is patent Respiratory effort is even, unlabored, Respiratory pattern is regular, symmetrical. Historical: - Allergies: 05:58 No Known Allergies; ha1 - PMHx: 05:58 None; ha1 - Immunization history:: Adult Immunizations up to date. - Infectious Disease History:: Denies. - Social history:: Smoking status: Patient denies any tobacco usage or history of. - Family history:: not pertinent. - Hospitalizations: : No recent hospitalization is reported. Screenin:51 [facility] ED Fall Risk Assessment (Adult) History of falling in the last 3 months, ha1 including since admission No falls in past 3 months (0 pts) Confusion or Disorientation No (0 pts) Intoxicated or Sedated No (0 pts) Impaired Gait No (0 pts) Mobility Assist Device Used No (0 pt) Altered Elimination No (0 pt) Score/Fall Risk Level 0 - 2 = Low Risk Oriented to surroundings, Maintained a safe environment, Hourly rounding (assess needs \T\ fall precautionary measures) done. Abuse screen: Denies threats or abuse. Denies injuries from another. Nutritional screening: No deficits noted. Tuberculosis screening: No symptoms or risk factors identified. Vital Signs: 05:50 BP 148 / 90; Pulse 91; Resp 17 S; Temp 98.6(O); Pulse Ox 100% on R/A; Weight 127.01 kg; ha1 Height 5 ft. 8 in. ; Pain 8/10; 05:50 Body Mass Index 42.57 (127.01 kg, 172.72 cm) ha1 05:50 Pain Scale: Adult [facility] ED Course: 05:45 Patient arrived in ED. j6 05:46 Shen Shannon MD is Attending Physician. rn 05:51 Patient has correct armband on for positive identification. ha1 05:51 Provided Education on: FOLLOW [employer] . ha1 05:58 Triage completed. ha1 06:06 Thea Weems MD is Referral Physician. rn 06:52 Arm band placed on right wrist. ha1 06:52 No provider procedures requiring assistance completed. Patient did not have IV access ha1 during this emergency room visit. Administered Medications: 06:42 Drug: Amoxicillin-Clavulanate PO 875 mg PO once Route: PO; ha1 06:54 Follow up: Response: No adverse reaction ha1 Medication: 06:53 VIS not applicable for this client. ha1 Outcome: 06:07 Discharge ordered by . rn 06:52 Discharged to home ambulatory, with family, ha1 06:52 Condition: stable 06:52 Discharge instructions given to patient, Instructed on discharge instructions, follow up and referral plans. medication usage, Demonstrated understanding of instructions, follow-up care, medications, Prescriptions given X 1, 06:54 Patient left the ED. ha1 Signatures: Shen Shannon MD MD rn Jeffries, Jennifer j6 Darling Campa RN RN 1
[2024-11-29] MEDS ORDERED: AMOX/K CLAV 875 MG TAB ONE (06:44)
[2024-11-29 06:59] VITALS: BP 148/90; TEMP 98.6; O2SAT 100
== END 2024-11-29 06:54 | disposition home or self-care (01) ==
LOC: ER 05:43
DX: J03.90 Acute tonsillitis, unspecified (principal)
CPT/HCPCS: 99283